=== PATIENT | male | born 1950 | race Caucasian/White ===

== ENCOUNTER 2018-05-01 05:15 | Day surgery (SDC) | payer MEDICARE, MEDICAID ==
[~2018-05-01] VITALS: Ht 182.9 cm; Wt 70.3 kg
[2018-05-01] VITALS (8 sets, daily range): BP systolic 105–133; BP diastolic 50–83
[~2018-05-01 05:15] MED LIST: ACIDOPHILUS1 EAC6 PO; ALLOPURINOL100 M1 ORAL; AMLODIPINE BESY10 MG ORAL; ASPIRIN81 MG ORAL; ATORVASTATIN CA10 MG ORAL; KEPPRA1000 MG ORAL; LEVEMIR100 UNIT/1 SUBQ; NOVOLOG100 UNIT/5 SQ; PROTONIX40 MG ORAL; RENVELA0.8 GM ORAL; RENVELA800 MG ORAL; TAMSULOSIN HCL0.4 MG ORAL; TRAZODONE HCL50 MG ORAL; VITAMIN D32000 UNI2 PO
[2018-05-01 06:24] LABS: BASOPHILS % (AUTO) 1.1 % (0.0-2.0); EOSINOPHILS % (AUTO) 3.7 % (0.0-3.0); HEMATOCRIT 37.7 % (42.0-52.0); HEMOGLOBIN 12.5 G/DL (14.2-18.0); LYMPHOCYTES % (AUTO) 21.1 % (20.0-45.0); MEAN CORPUSCULAR VOLUME 94 FL (80-99); MONOCYTES % (AUTO) 9.1 % (1.0-10.0); PLATELET COUNT 191 K/UL (150-450); RED BLOOD COUNT 4.02 M/UL (4.70-6.10); RED CELL DISTRIBUTION WIDTH 14.6 % (11.6-14.8); WHITE BLOOD COUNT 6.8 K/UL (4.8-10.8)
[2018-05-01 06:34] LABS: ANION GAP 13 mmol/L (5-15); BLOOD UREA NITROGEN 65 mg/dL (7-18); CARBON DIOXIDE 22 MMOL/L (21-32); CHLORIDE 102 MMOL/L (98-107); CREATININE 6.3 MG/DL (0.55-1.30); INR 0.9 (0.9-1.1); POTASSIUM 4.5 MMOL/L (3.5-5.1); SODIUM 137 MMOL/L (136-145)
[2018-05-01] MEDS ORDERED: Midazolam 2mg/2ml Inj ONE ×2 (08:59→12:22)
[2018-05-01] MEDS ORDERED: fentaNYL 100 mcg/2 mL IV ONE (09:03)
[2018-05-01] MEDS ORDERED: Lidocaine 1% MPF 10mg/ml 5ml ONE (09:06)
[2018-05-01] MEDS ORDERED: Lidocaine 1% Plain 30 ml INJ ONE (09:53)
[2018-05-01] MEDS ORDERED: Heparin 5000 units/ml inj ONE (09:53)
[2018-05-01] MEDS ORDERED: Bupivacaine 0.5% Inj 30 ml vial INJ ONE (09:53)
[2018-05-01] MEDS ORDERED: Clindamycin 600mg 50 ML IV ONE (09:56)
[2018-05-01] MEDS ORDERED: Propofol 200mg/20ml IV ONE (09:56)
[2018-05-01] MEDS ORDERED: Sterile Water Irrig 1000ml IRRIG ONE (10:00)
[2018-05-01] MEDS ORDERED: NS Irrig 1000ml ONE (10:00)
[2018-05-01] MEDS ORDERED: ePHEDrine 50mg/ml Inj ONE (10:30)
[2018-05-01] MEDS ORDERED: Sodium Chloride 10ml vial INJ ONE (10:30)
[2018-05-01] MEDS ORDERED: Phenylephrine 10mg/ml Vial ONE (10:34)
--- NOTE | 2018-05-01 10:59 | Anethesia Preoperative Eval ---
Anesthesia Pre-op PMH/ROS General Date of Evaluation: May 01, 2018 Time of Evaluation: 09:55 Anesthesiologist: Obdulio ASA Score: ASA 3 Mallampati Score Class I : Soft palate, uvula, fauces, pillars visible Class II: Soft palate, uvula, fauces visible Class III: Soft palate, base of uvula visible Class IV: Only hard plate visible Mallampati Classification: Class II Surgeon: Jermaine Diagnosis: ESRD Surgical Procedure: A-V shunt placement Anesthesia History: none Family History: no anesthesia problems Allergies: Coded Allergies: PENICILLINS (Verified Allergy, Unknown, 04/26/18) Medications: see eMAR Patient NPO?: Yes Past Medical History Cardiovascular: Reports: HTN; Denies: CAD, DC, valve dz, arrhythmia, other Pulmonary: Denies: asthma, COPD, ROSIE, other Gastrointestinal/Genitourinary: Reports: GERD, ESRD - on HD Neurologic/Psychiatric: Reports: depression/anxiety, other - Seizers psychotic? ; Denies: dementia, CVA, TIA Endocrine: Reports: DM - poorly controlled; Denies: hypothyroidism, steroids, other HEENT: Denies: cataract (L), cataract (R), glaucoma, CHENEGA (L), CHENEGA (R), other Hematology/Immune: Reports: anemia - mild; Denies: DVT, bleeding disorder, other Musculoskeletal/Integumentary: Reports: DJD; Denies: OA, RA, DDD, edema, other Other: other - malnourished PMH Narrative: as above. A-V shunt dialysis catheter Anesthesia Pre-op Phys. Exam Physician Exam Last Vital Signs Date Time Temp Pulse Resp B/P (MAP) Pulse Ox O2 Delivery O2 Flow Rate FiO2 05/01/18 07:49 98.3 84 20 132/76 96 Room Air Constitutional: NAD Neurologic: other - unable to obtaine Cardiovascular: RRR Respiratory: CTA Gastrointestinal: S/NT/ND Airway Exam Mallampati Score: Class III MO: limited Neck: stiff ROM: limited Teeth: missing Dentures: no upper, no lower Anesthesia Pre-op A/P Labs Hematology Test 05/01/18 06:10 White Blood Count 6.8 K/UL (4.8-10.8) Red Blood Count 4.02 M/UL (4.70-6.10) L Hemoglobin 12.5 G/DL (14.2-18.0) L Hematocrit 37.7 % (42.0-52.0) L Mean Corpuscular Volume 94 FL (80-99) Mean Corpuscular Hemoglobin 31.2 PG (27.0-31.0) H Mean Corpuscular Hemoglobin Concent 33.3 G/DL (32.0-36.0) Red Cell Distribution Width 14.6 % (11.6-14.8) Platelet Count 191 K/UL (150-450) Mean Platelet Volume 6.0 FL (6.5-10.1) L Neutrophils (%) (Auto) 65.0 % (45.0-75.0) Lymphocytes (%) (Auto) 21.1 % (20.0-45.0) Monocytes (%) (Auto) 9.1 % (1.0-10.0) Eosinophils (%) (Auto) 3.7 % (0.0-3.0) H Basophils (%) (Auto) 1.1 % (0.0-2.0) Coagulation Test 05/01/18 06:10 Prothrombin Time 10.0 SEC (9.30-11.50) Prothromb Time International Ratio 0.9 (0.9-1.1) Activated Partial Thromboplast Time 27 SEC (23-33) Chemistry Test 05/01/18 06:10 Sodium Level 137 MMOL/L (136-145) Potassium Level 4.5 MMOL/L (3.5-5.1) Chloride Level 102 MMOL/L (98-107) Carbon Dioxide Level 22 MMOL/L (21-32) Anion Gap 13 mmol/L (5-15) Blood Urea Nitrogen 65 mg/dL (7-18) H Creatinine 6.3 MG/DL (0.55-1.30) H Estimat Glomerular Filtration Rate 8.9 mL/min (>60) Glucose Level 164 MG/DL (74-106) H Calcium Level 9.0 MG/DL (8.5-10.1) Studies Pre-op Studies: EKG - SR Risk Assessment & Plan Assessment: ASA 3 Plan: GA with LMA. Patient uncooperative even combative, so I/V sedation with local is not an option for anesthesia Status Change Before Surgery: No Pre-Antibiotics Drug: Clindamycin 600 mg Given Within 1 Hr of Incision: Yes Time Given: 10:40 Vakulenko,Cullen MD May 01, 2018 10:59
[2018-05-01] MEDS ORDERED: DiphenhydrAMINE 50mg/ml Inj IVP PRN (11:00)
[2018-05-01] MEDS ORDERED: fentaNYL 100 mcg/2 mL IV PRN (11:00)
[2018-05-01] MEDS ORDERED: Midazolam 2mg/2ml Inj IVP PRN (11:00)
--- NOTE | 2018-05-01 12:49 | Pre-Procedure Note/Attestation ---
Pre-Procedure Note/Attestation Complete Prior to Procedure Planned Procedure: left Procedure Narrative: arm dialysis shunt, possible dialysis catheter placement Indications for Procedure Pre-Operative Diagnosis: ESRD; thrombosed AV shunt Attestation I attest that I discussed the nature of the procedure; its benefits; risks and complications; and alternatives (and the risks and benefits of such alternatives ), prior to the procedure, with the patient (or the patient's legal new accounts banking representative). I attest that, if there was a reasonable possibility of needing a blood transfusion, the patient (or the patient's legal new accounts banking representative) was given the [facility] standardized written summary, pursuant to the Prateek [place] Blood Safety Act ([place] Health and Safety Code # 1645, as amended). I attest that I re-evaluated the patient just prior to the surgery and that there has been no change in the patient's H&P, except as documented below: Malik Dean MD May 01, 2018 12:49
--- NOTE | 2018-05-01 12:50 | Brief Operative Note ---
Immediate Post Operative Note Operative Note Pre-op Diagnosis: ESRD; thrombosed AV shunt Procedure: left brachiobasilic AVF creation; attempted Zbigniew AVF; exploration of old AV shunt Post-op Diagnosis: same as pre-op Findings: consistent w/pre-op dx studies Surgeon: Rikki Dean Anesthesia: general Specimen: none Complications: none Condition: stable Fluids: see anesth. record Estimated Blood Loss: minimal Drains: none Implant(s) used?: No Malik Dean MD May 01, 2018 12:50
--- NOTE | 2018-05-01 12:58 | Immediate Post-Op Evaluation ---
Immediate Post-Op Evalulation Immediate Post-Op Evalulation Procedure: L arm A-V fistula creation Date of Evaluation: May 01, 2018 Time of Evaluation: 12:57 IV Fluids: 600 Blood Products: none Estimated Blood Loss: 50 Urinary Output: none Blood Pressure Systolic: 122 Blood Pressure Diastolic: 56 Pulse Rate: 78 Respiratory Rate: 20 O2 Sat by Pulse Oximetry: 99 Temperature (Fahrenheit): 97.6 Pain Score (1-10): 2 Nausea: No Vomiting: No Complications none Patient Status: awake, patent, none Hydration Status: adequate Cullen Mak MD May 01, 2018 12:58
--- NOTE | 2018-05-02 17:10 | Cardiology Report ---
APPROVED REPORT EKG Measurement Heart [id number] Normal sinus rhythm Normal ECG
--- NOTE | 2018-05-07 21:53 | Diagnostic Imaging Report ---
APPROVED REPORT CPT Code: G0365 Present Symptoms Comments: Pre-op Vein mapping Vein Measurements(cm) Cephalic Basilic Right LeftRight Left 0.27Upper Arm0.43Mid Upper Arm0.40 0.24Mid Upper Arm0.33Antecubital Fossa0.27 0.22Upper Forearm 0.25Antecubital FossaWrist 0.18Upper Forearm 0.18Wrist VEIN MAPPING: The right and left basilic and right cephalic veins were imaged and measured to evaluate as a potential graft for dialysis access. BILATERAL UPPER EXTREMITY: Venous imaging reveals patency of the internal jugular, subclavian, axillary and brachial veins. The cephalic and basilic veins are also patent. Doppler indicates normal spontaneous flow within these venous segments. Note: There is nonfunctioning left Dialysis graft at the left upper arm visualized.
--- NOTE | 2018-05-14 11:15 | Operative Note - Dictated ---
DATE OF OPERATION: 05/01/2018 PREOPERATIVE DIAGNOSES: 1. Thrombosed dialysis shunt. 2. Endstage renal disease. POSTOPERATIVE DIAGNOSES: 1. Thrombosed dialysis shunt. 2. Endstage renal disease as well as findings below. PROCEDURES: 1. Creation of brachiobasilic dialysis arteriovenous fistula in the left upper extremity. 2. Attempted creation of Zbigniew AV fistula in the left forearm. 3. Exploration of the old dialysis shunt. 4. Dilation of left basilic vein. SURGEON: Malik Dean M.D. ANESTHESIOLOGIST: Cullen Mak M.D. INDICATION: The patient dialyzes through a tunneled catheter and is in need of permanent access. Previous shunt has been thrombosed for a significant amount of time and attempt at creation of a permanent access was recommended. INTRAOPERATIVE FINDINGS: The existing shunt was chronically thrombosed and not salvageable and therefore the basilic vein was used to create a new AV fistula as described and the fistula had a good thrill at the end of the procedure. Ipsilateral radial pulse is present at left wrist level. An attempt was first made to create a Zbigniew fistula at the left wrist level but the vein was inadequate and it was abandoned. The new fistula had a good thrill and will be allowed to mature before reassessment for possible transposition after few weeks. PROCEDURE IN DETAIL: With the patient in supine position and after induction of anesthesia, the left upper extremity was prepped and draped in usual sterile fashion and the skin was infiltrated with local anesthetic. A longitudinal incision was made over the course of the radial artery at the left wrist level through which the artery was exposed and noted to be patent but calcified. Cephalic vein were interrogated for creation of the AV fistula and therefore this approach was abandoned and the wound irrigated with antibiotic solution and hemostasis was established. It was closed with interrupted sutures of 3-0 Vicryl for the deep layer followed by 4-0 Monocryl subcuticular continuous fashion for skin closure. Sterile dressings were placed. Next incision was made over the brachial pulse just distal to the antecubital crease and close to the previous arterial anastomosis of the shunt through which the anastomosis was exposed and the artery encircled with vessel loops proximally and distally. The shunt appeared to have a chronic thrombus not amenable to thrombectomy and therefore the basilic vein at this level was examined and noted to be patent. It was ligated and divided more distally and an adequate length was mobilized by ligating tributaries between silk ties and hemoclips were necessary. It was flushed with heparinized saline and noted to be widely patent. Serial dilators were passed up to a 3 millimeter diameter without significant resistance and after the end of the vein was spatulated. The brachial artery more proximal to the existing shunt anastomosis was then controlled with vessel loops proximally and distally and a longitudinal arteriotomy was made. Through which the vessel was flushed with heparinized saline proximally and distally. An end-to-side anastomosis of the vein and then carried out with a continuous suture of 6-0 Prolene. After removal the vessel, excellent thrill to the the vein was noted and a palpable thrill and ipsilateral radial pulse apparent as described above. After hemostasis was ensured, the wound was irrigated antibiotic solution and closed with interrupted sutures of 2-0 and 3-0 Vicryl for deep layer followed by 4-0 Monocryl subcuticular continuous fashion for skin closure. Antibiotic ointment and dressings were applied. The patient brought out of anesthesia, extubated and transferred to the PACU in stable condition. He tolerated the procedure well. At the conclusion of procedure, sponge, needle and instrument counts were correct. ESTIMATED BLOOD LOSS: Minimal. COMPLICATIONS: None. DRAINS: None. SPECIMEN: None. Malik Dean M.D. DR: Yaa JOB#: [id number] CC: Yanira Thompson M.D. ; FAX#: [phone]
== END 2018-05-01 16:15 | disposition home or self-care (01) ==
LOC: SUR 05:15
DX: T82.868A Thrombosis due to vascular prosthetic devices, implants and grafts, initial encounter (principal); Y83.8 Other surgical procedures as the cause of abnormal reaction of the patient, or of later complication, without mention of misadventure at the time of the procedure; Y92.89 Other specified places as the place of occurrence of the external cause; E11.22 Type 2 diabetes mellitus with diabetic chronic kidney disease; I12.0 Hypertensive chronic kidney disease with stage 5 chronic kidney disease or end stage renal disease; N18.6 End stage renal disease; Z99.2 Dependence on renal dialysis; Z79.4 Long term (current) use of insulin; N40.0 Benign prostatic hyperplasia without lower urinary tract symptoms; M10.9 Gout, unspecified; R56.9 Unspecified convulsions; E78.5 Hyperlipidemia, unspecified; E87.5 Hyperkalemia; F32.9 Major depressive disorder, single episode, unspecified; F41.9 Anxiety disorder, unspecified; D64.9 Anemia, unspecified; M19.90 Unspecified osteoarthritis, unspecified site
CPT/HCPCS: 36415; 36819; 80048; 82962; 85025; 85610; 85730; 93005; 93922; J1644; J2001; J2250; J2370; J2704; J3010; J3490; 94003; 94150; S0077

== ENCOUNTER 2018-08-02 08:53 | Inpatient (IN) | payer MEDICAID, MEDICARE ==
[~2018-08-02] VITALS: Ht 182.9 cm
--- NOTE | 2018-08-02 09:00 | NUR ---
ED Nurse Note: [facility]. patient has HD cath on the right upper chest covered with dry dressing. patient has LT antecubital shunt covered with dressing. patient is awake and alert x1, with some confusion. patient is able to make his needs known and follow direction. breathing even and unlabored.
[2018-08-02 09:02] VITALS: BP 130/69
--- NOTE | 2018-08-02 09:29 | Emergency Room Report ---
History of Present Illness General Chief Complaint: General Complaint Source: Patient, Medical Record Present Illness HPI 68yo M sent for vascular surgery, patient is limited in his cooperation but reports he was supposed to have vascular surgery. He denies any complaints and reports feeling well. Allergies: Coded Allergies: PENICILLINS (Verified Allergy, Unknown, 04/26/18) Patient History Past Medical History: see triage record Reviewed Nursing Documentation: PMH: Agreed; PSxH: Agreed Nursing Documentation-PMH Past Medical History: No History, Except For Hx Cardiac Problems: Yes Hx Hypertension: Yes Hx Diabetes: Yes Hx Cancer: No Hx Gastrointestinal Problems: Yes Hx Dialysis: Yes - MON/MON/MON-SHUNT LEFT ANTICUBITAL Hx Neurological Problems: Yes Hx Seizures: Yes Review of Systems All Other Systems: negative except mentioned in HPI Physical Exam Vital Signs Date Time Temp Pulse Resp B/P (MAP) Pulse Ox O2 Delivery O2 Flow Rate FiO2 08/02/18 08:56 98.6 90 21 97 Room Air 08/02/18 09:02 130/69 Sp02 EP Interpretation: reviewed, normal General Appearance: no apparent distress, alert, non-toxic Head: normocephalic Eyes: bilateral eye normal inspection, bilateral eye PERRL, bilateral eye EOMI ENT: normal ENT inspection, hearing grossly normal, normal pharynx, no angioedema, normal voice, moist mucus membranes Neck: normal inspection, full range of motion, supple, supple/symm/no masses Respiratory: chest non-tender, lungs clear, normal breath sounds, other - R chest vascath site c/d/i, no erythema/edema/warmth, chest symmetrical, palpation of chest normal Cardiovascular #1: normal peripheral pulses, regular rate, rhythm Cardiovascular #2: 2+ radial (R), 2+ radial (L) Gastrointestinal: normal inspection, non tender, soft, no mass, no guarding, no rebound Rectal: deferred Genitourinary: normal inspection, no CVA tenderness Musculoskeletal: back normal, gait/station normal, normal range of motion, non- tender, no calf tenderness Neurologic: alert, responsive, student life vice president III-XII nml as tested, motor strength/tone normal, sensory intact, speech normal Psychiatric: judgement/insight normal, memory normal, mood/affect normal Skin: normal color, no rash, warm/dry, normal turgor Lymphatic: no adenopathy Medical Decision Making Diagnostic Impression: Primary Impression: Encounter for generalized patient complaints ER Course Patient apparently supposed to be here for placement of HD access (shunt vs. AVF ) with Dr. Dean, will admit to med surgery. EKG Diagnostic Results EKG Time: 09:09 EP Interpretation: no stemi Rate: normal Rhythm: NSR ST Segments: no acute changes ASA given to the pt in ED: No Rhythm Strip Diag. Results Rhythm Strip Time: 09:28 EP Interpretation: yes Rate: 82 Rhythm: NSR, no PVC's, no ectopy Last Vital Signs Date Time Temp Pulse Resp B/P (MAP) Pulse Ox O2 Delivery O2 Flow Rate FiO2 08/02/18 09:04 81 21 Room Air 08/02/18 09:02 98.6 130/69 98 Disposition: ADMITTED INPATIENT Condition: Stable BRENDA PHILLIPS M.D August 02, 2018 09:29
--- NOTE | 2018-08-02 09:40 | NUR ---
ED Nurse Note: xray taken at bed
[2018-08-02 09:54] LABS: BASOPHILS % (AUTO) 1.5 % (0.0-2.0); HEMATOCRIT 36.8 % (42.0-52.0); HEMOGLOBIN 12.4 G/DL (14.2-18.0); LYMPHOCYTES % (AUTO) 26.9 % (20.0-45.0); MEAN CORPUSCULAR VOLUME 92 FL (80-99); MONOCYTES % (AUTO) 11.6 % (1.0-10.0); PLATELET COUNT 240 K/UL (150-450); RED BLOOD COUNT 3.98 M/UL (4.70-6.10); RED CELL DISTRIBUTION WIDTH 13.6 % (11.6-14.8); WHITE BLOOD COUNT 7.5 K/UL (4.8-10.8)
[2018-08-02 10:11] VITALS: BP 124/64
[2018-08-02 10:17] LABS: ANION GAP 10 mmol/L (5-15); BLOOD UREA NITROGEN 37 mg/dL (7-18); CALCIUM 9.2 MG/DL (8.5-10.1); CARBON DIOXIDE 29 MMOL/L (21-32); CHLORIDE 97 MMOL/L (98-107); POTASSIUM 5.2 MMOL/L (3.5-5.1); SODIUM 136 MMOL/L (136-145)
[2018-08-02 10:21] LABS: ALANINE AMINOTRANSFERASE 29 U/L (12-78); ALBUMIN 3.9 G/DL (3.4-5.0); ALKALINE PHOSPHATASE 95 U/L (46-116); ASPARTATE AMINO TRANSFERASE 34 U/L (15-37); BILIRUBIN,TOTAL 0.6 MG/DL (0.2-1.0)
[2018-08-02 10:31] LABS: INR 0.9 (0.9-1.1)
--- NOTE | 2018-08-02 10:32 | Diagnostic Imaging Report ---
Indication: Dyspnea Comparison: 04/06/2006 A single view chest radiograph was obtained. Findings: There is a right jugular permacath in good position. Heart size is normal. Lungs are clear. IMPRESSION: Permacath. No acute findings
[2018-08-02 12:01] VITALS: BP 129/67
--- NOTE | 2018-08-02 12:38 | NUR ---
ED Nurse Note: patient's lunch tray as ordered by Dr. Munguia delivered, RETAIL LOAN OFFICER is assisting patient to eat.
--- NOTE | 2018-08-02 13:05 | NUR ---
ED Nurse Note: OPAL (CAREGIVER) TO BE NOTIFIED OF PT'S PLAN OF CARE PLS. [phone].
--- NOTE | 2018-08-02 13:06 | NUR ---
ED Nurse Note: Called 4E to give report, Victor Manuel CHASE said Afsoon the receiving nurse is passing meds, told to call back in 10 minutes
--- NOTE | 2018-08-02 13:25 | NUR ---
ED Nurse Note: Dr. Núñez ok for the patient to be transferred to with K 5.2
--- NOTE | 2018-08-02 13:28 | NUR ---
ED Nurse Note: report given to RONALDO RN, endorsed all care to Ronaldo RN. patient went up with ODELL BRADY with all of his belongings
--- NOTE | 2018-08-02 13:35 | NUR ---
ED Nurse Note: Spoke with [facility] Charge nurse and let her know that patient is now transferred up to 4E and report was given to Ronaldo NAYAK
--- NOTE | 2018-08-02 13:40 | NUR ---
NURSE NOTES: Received pt from NAEL STORY. pt is confused and orient x2. pt is in RA, No SOB or acute respiratory distress noted. pt has R jaguar PermCath and LAV SHUNT. pt has RFA 20G SL. Dr BARRY is aware and visited pt and input all admission orders. Dr BARRY is aware about K 5.2 and sacral red ness and L knee dry scabs. all needs attended, bed is locked and is in the lowest position. call light within easy reach. will continue to monitor.
[2018-08-02 13:45] VITALS: BP 128/86
--- NOTE | 2018-08-02 14:11 | Anethesia Preoperative Eval ---
Anesthesia Pre-op PMH/ROS General Date of Evaluation: August 02, 2018 Time of Evaluation: 13:12 Anesthesiologist: Anders ASA Score: ASA 3 Mallampati Score Class I : Soft palate, uvula, fauces, pillars visible Class II: Soft palate, uvula, fauces visible Class III: Soft palate, base of uvula visible Class IV: Only hard plate visible Mallampati Classification: Class II Surgeon: Jermaine Diagnosis: ESRD Surgical Procedure: L Arm AV Shunt Revision, Dialysis Catheter Placement Anesthesia History: none Family History: no anesthesia problems Allergies: Coded Allergies: PENICILLINS (Verified Allergy, Unknown, 04/26/18) Medications: see eMAR Patient NPO?: Yes Past Medical History Cardiovascular: Reports: HTN, other - HL Gastrointestinal/Genitourinary: Reports: GERD, ESRD - Dialysis Neurologic/Psychiatric: Reports: depression/anxiety Endocrine: Reports: DM Hematology/Immune: Reports: anemia Musculoskeletal/Integumentary: Reports: other - GOUT PSxH Narrative: AV Shunt Anesthesia Pre-op Phys. Exam Physician Exam Last Vital Signs Date Time Temp Pulse Resp B/P (MAP) Pulse Ox O2 Delivery O2 Flow Rate FiO2 08/02/18 13:28 98.6 75 12 129/67 95 Room Air Constitutional: NAD Neurologic: CN 2-12 intact Cardiovascular: RRR Respiratory: CTA Gastrointestinal: S/NT/ND Airway Exam Mallampati Score: Class II MO: full ROM: limited Teeth: missing, intact Anesthesia Pre-op A/P Labs Hematology Test 08/02/18 09:25 White Blood Count 7.5 K/UL (4.8-10.8) Red Blood Count 3.98 M/UL (4.70-6.10) L Hemoglobin 12.4 G/DL (14.2-18.0) L Hematocrit 36.8 % (42.0-52.0) L Mean Corpuscular Volume 92 FL (80-99) Mean Corpuscular Hemoglobin 31.2 PG (27.0-31.0) H Mean Corpuscular Hemoglobin Concent 33.8 G/DL (32.0-36.0) Red Cell Distribution Width 13.6 % (11.6-14.8) Platelet Count 240 K/UL (150-450) Mean Platelet Volume 7.3 FL (6.5-10.1) Neutrophils (%) (Auto) 57.0 % (45.0-75.0) Lymphocytes (%) (Auto) 26.9 % (20.0-45.0) Monocytes (%) (Auto) 11.6 % (1.0-10.0) H Eosinophils (%) (Auto) 3.0 % (0.0-3.0) Basophils (%) (Auto) 1.5 % (0.0-2.0) Coagulation Test 08/02/18 09:25 Prothrombin Time 10.0 SEC (9.30-11.50) Prothromb Time International Ratio 0.9 (0.9-1.1) Activated Partial Thromboplast Time 24 SEC (23-33) Chemistry Test 08/02/18 09:25 Sodium Level 136 MMOL/L (136-145) Potassium Level 5.2 MMOL/L (3.5-5.1) H Chloride Level 97 MMOL/L (98-107) L Carbon Dioxide Level 29 MMOL/L (21-32) Anion Gap 10 mmol/L (5-15) Blood Urea Nitrogen 37 mg/dL (7-18) H Creatinine 6.0 MG/DL (0.55-1.30) H Estimat Glomerular Filtration Rate 9.4 mL/min (>60) Glucose Level 179 MG/DL (74-106) H Calcium Level 9.2 MG/DL (8.5-10.1) Total Bilirubin 0.6 MG/DL (0.2-1.0) Aspartate Amino Transf (AST/SGOT) 34 U/L (15-37) Alanine Aminotransferase (ALT/SGPT) 29 U/L (12-78) Alkaline Phosphatase 95 U/L (46-116) Total Protein 7.7 G/DL (6.4-8.2) Albumin 3.9 G/DL (3.4-5.0) Globulin 3.8 g/dL Albumin/Globulin Ratio 1.0 (1.0-2.7) Risk Assessment & Plan Assessment: ASA 3 Plan: GA Status Change Before Surgery: No Pre-Antibiotics Drug: Des Sage MD August 02, 2018 14:11
--- NOTE | 2018-08-02 14:28 | NUR ---
CHARGE NURSE NOTES: Called [facility] and spoke to Fortunato. Informed HD order for 08/03/18. Verbalized understanding and said cancellation clerk dialysis nurse will call to confirm
[2018-08-02 16:00] VITALS: BP 145/55
--- NOTE | 2018-08-02 16:00 | NUR ---
NURSE NOTES: called the number in the chart for zhanna kemp x3 for consent about HD and AVF, no body answered. called [facility] spoke with FAMOCO, she stated pt doesn't have any family member. Dr BARRY is notified, and Dr AMARAL signed consent form and tomorrow will be signed by surgeon Dr NORIEGA per Dr salas. Dr NORIEGA is notified. will continue to monitor.
[2018-08-02] MEDS: NovoLOG Insulin Flexpen SUBQ SCH ×2 (17:06→20:39)
--- NOTE | 2018-08-02 19:30 | NUR ---
NURSE NOTES: RECEIVED PATIENT LYING IN BED, AWAKE, ALERT/ORIENTED X2, CONFUSED, JONES, REALITY ORIENTATION PROVIDED DURING ASSESSMENT. DENIES PAIN. NO SIGNS AND SYMPTOMS OF ACUTE CARDIO RESPIRATORY DISTRESS/SHORTNESS OF BREATH, NO EDEMA NOTED, DENIES CHEST PAIN. NO COMPLAINTS OF GI DISCOMFORT, CONDOM CATHETER INTACT/PATENT, DRAINING YELLOW URINE. SKIN ASSESSMENT; NOTED WITH PERIANAL REDNESS, LEFT KNEE NOTED WITH MULTIPLE SCABS, REDNESS TO RIGHT ANKLE. SIDE RAILS UP X3/BED IN LOWEST POSITION FOR SAFETY. CALL LIGHT WITHIN REACH. FREQUENT ROUNDS FOR SAFETY/NEEDS. NAD. NPO POST MIDNIGHT, SIGN POSTED.
--- NOTE | 2018-08-02 19:36 | NUR ---
HAND-OFF: Report given to NAEL GO. Endorsed to keep pt NPO from mid night and F/U with surgeon and primary Dr to sign consent form
[2018-08-02 20:00] VITALS: BP 135/86
[2018-08-02] MEDS: Tamsulosin 0.4mg cap ORAL SCH (20:27)
[2018-08-02] MEDS: Docusate 100mg cap ORAL SCH (20:27)
[2018-08-02] MEDS: Levemir Flexpen SUBQ SCH (20:38)
[2018-08-02] MEDS ORDERED: TraZODone 50mg tab ORAL SCH (21:00)
[2018-08-03] VITALS (12 sets, daily range): BP systolic 127–161; BP diastolic 53–96
--- NOTE | 2018-08-03 00:30 | Consultation ---
DATE OF CONSULTATION: 08/02/2018 CONSULTING PHYSICIAN: Karolyn Rendon M.D. HISTORY OF PRESENT ILLNESS: The patient is a 68-year-old male with unknown psychiatric history who has been admitted to the hospital for vascular surgery. The patient has been uncooperative and has been yelling, getting agitated easily. During the evaluation, the patient is somewhat confused, was unable to answer the questions appropriately. The patient has been paranoid and delusional, yelling, and responding to self. The patient using profanity towards the staff and has made sexual remarks, for example "suck my ." The patient was unable to understand, process, communicate nor appreciate the information that was given to him in regard to his medical condition or the procedure. The patient lacks capacity to make decisions or sign any consent form. PAST PSYCHIATRIC HISTORY: Unknown. 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 ALLERGIES: Penicillin. SUBSTANCE ABUSE HISTORY: No known history of illicit drug use or alcohol. MENTAL STATUS EXAMINATION: The patient is alert, oriented times self. He was uncooperative. Mood was irritable. Affect is constricted, congruent with mood. Thought process is concrete. Thought content, no suicidal or homicidal ideations. ASSESSMENT: Descanso I Dementia with behavior disturbance, rule out encephalopathy. [place]o II Deferred. [place]canso III As above. [place]o IV Low. [place]canso V 20. PLAN: 1. We will start the patient on risperidone 1 mg p.o. at bedtime and risperidone p.r.n. 2. The patient lacks capacity, needs 2 physicians to sign the consent form for the procedure. Dr. Munguia and I will sign the consent form. Karolyn Rendon M.D. DR: VICTOR HUGO JOB#: [id number] CC:
[2018-08-03] MEDS: NovoLOG Insulin Flexpen SUBQ SCH ×4 (06:30→21:50)
--- NOTE | 2018-08-03 06:43 | NUR ---
NURSE NOTES: BLOOD GLUCOSE LEVEL MONITORED VIA GLUCOMETER WITH RESULT 127MG/DL, ASYMPTOMATIC, KPATIENT NPO/AM INSULIN HELD-
--- NOTE | 2018-08-03 07:30 | NUR ---
NURSE NOTES: Received pt from NIKKI GO. Pt is alert and orient x4. pt is in RA, No SOB or acute respiratory distress noted. pt has RFA 20G SL. Pt has condom cath in place is running well. pt is NPO due to procedure today. all needs attended, bed is locked and is in the lowest position, call light within easy reach. will continue to monitor.
--- NOTE | 2018-08-03 07:30 | NUR ---
HAND-OFF: Report given to NAEL CUEVAS.
--- NOTE | 2018-08-03 08:39 | Nephrology Progress Note ---
Assessment/Plan Assessment/Plan: A/P 1) ESRD- HD MWF - HD orders placed 2) NonFx AVF- for revsion today 3) Gout- allopurinol 4) DM - per PCP Subjective Date patient seen: August 03, 2018 Time patient seen: 08:37 ROS Limited/Unobtainable: No Allergies: Coded Allergies: PENICILLINS (Verified Allergy, Unknown, 04/26/18) Subjective Patient slightly agitated. NPO awaiting AVF revision Objective Last 24 Hour Vital Signs Date Time Temp Pulse Resp B/P (MAP) Pulse Ox O2 Delivery O2 Flow Rate FiO2 08/03/18 04:00 97.1 87 18 143/80 (101) 87 08/03/18 00:00 98.0 80 20 141/96 (111) 99 08/02/18 21:00 Room Air 08/02/18 20:00 99.6 81 18 135/86 (102) 97 08/02/18 16:00 97.2 83 20 145/55 (85) 95 08/02/18 15:00 Room Air 08/02/18 13:45 98.1 82 20 128/86 (100) 100 08/02/18 13:28 98.6 75 12 129/67 95 Room Air 08/02/18 12:01 98.6 75 12 129/67 95 Room Air 08/02/18 10:11 98.6 79 16 124/64 94 Room Air 08/02/18 09:04 81 21 Room Air 08/02/18 09:02 98.6 81 21 130/69 98 Room Air 08/02/18 08:56 98.6 90 21 97 Room Air Intake and Output 08/02/18 08/03/18 18:59 06:59 Intake Total 150 ml 240 ml Output Total 300 ml 600 ml Balance -150 ml -360 ml Intake Oral 150 ml 240 ml Output Urine Total 300 ml 600 ml Laboratory Tests 08/02/18 09:25: White Blood Count 7.5, Red Blood Count 3.98L, Hemoglobin 12.4L, Hematocrit 36.8L , Mean Corpuscular Volume 92, Mean Corpuscular Hemoglobin 31.2H, Mean Corpuscular Hemoglobin Concent 33.8, Red Cell Distribution Width 13.6, Platelet Count 240, Mean Platelet Volume 7.3, Neutrophils (%) (Auto) 57.0, Lymphocytes (% ) (Auto) 26.9, Monocytes (%) (Auto) 11.6H, Eosinophils (%) (Auto) 3.0, Basophils (%) (Auto) 1.5, Prothrombin Time 10.0, Prothromb Time International Ratio 0.9, Activated Partial Thromboplast Time 24, Sodium Level 136, Potassium Level 5.2H, Chloride Level 97L, Carbon Dioxide Level 29, Anion Gap 10, Blood Urea Nitrogen 37H, Creatinine 6.0H, Estimat Glomerular Filtration Rate 9.4, Glucose Level 179H, Calcium Level 9.2, Total Bilirubin 0.6, Aspartate Amino Transf (AST/SGOT) 34, Alanine Aminotransferase (ALT/SGPT) 29, Alkaline Phosphatase 95, Total Protein 7.7, Albumin 3.9, Globulin 3.8, Albumin/Globulin Ratio 1.0 08/02/18 17:15: Potassium Level 4.2 Height (Feet): 6 Height (Inches): 0.00 Weight (Pounds): 179 General Appearance: no apparent distress, alert EENT: normal ENT inspection Neck: normal alignment, supple, normal inspection Cardiovascular: normal rate, regular rhythm Respiratory/Chest: lungs clear, normal breath sounds Abdomen: non tender, soft Edema: no edema noted Arm (L), no edema noted Arm (R), no edema noted Leg (L), no edema noted Leg (R), no edema noted Pedal (L), no edema noted Pedal (R), no edema noted Generalized Thang Munguia MD August 03, 2018 08:39
--- NOTE | 2018-08-03 08:47 | History & Physical ---
History and Physical History & Physicial HISTORY OF PRESENT ILLNESS: The patient is a 68-year-old gentleman, who was sent to the hospital for further evaluation and care of poorly functioning dialysis catheter when noted to have a potassium of 5.2. It was told that he in the future also need improved access over his dialysis catheter such as an AV fistula. Denies any nausea, vomiting, or diarrhea. He undergoes hemodialysis Monday, Monday and Monday at a local [facility]. The patient says that he had his dialysis session yesterday. PAST MEDICAL HISTORY: 1. End-stage renal disease, on dialysis. 2. Hypertension. 3. Diabetes mellitus. 4. Hyperlipidemia. 5. Anemia of chronic kidney disease. 6. Secondary hyperparathyroidism. PAST SURGICAL HISTORY: 1. AV fistula. 2. Dialysis catheter. ALLERGIES: Penicillins. FAMILY HISTORY: Positive for hypertension and diabetes. REVIEW OF SYSTEMS: NEUROLOGIC: The patient denies headache, change in vision, syncope, or presyncopal episodes. CARDIOVASCULAR: No current chest pain, palpitations, or angina. PULMONARY: No difficulty breathing, productive cough, or sputum. GASTROINTESTINAL/GENITOURINARY: No change in urine or bowel habits. No nausea, vomiting, or diarrhea. ENDOCRINOLOGY: No night sweats, fevers, or chills. MS: right upper chest wall permcath in place PHYSICAL EXAMINATION: GENERAL: The patient is awake, alert, and not in distress. HEENT: Extraocular muscles intact. No lymphadenopathy noted.Oropharyngeal mucosa is clear and dry. CARDIOVASCULAR: S1, S2. No rubs or gallops.PULMONARY: Clear to auscultation bilaterally. No rales, rhonchi, or wheezes.ABDOMINAL: Nondistended and nontender.EXTREMITY: No edema noted. LABORATORY DATA: Laboratories dated 08/02/2018 reviewed Medication : Reviewed and reconciled in the chart ASSESSMENT AND PLAN: 1. End-stage renal disease, on hemodialysis. 2. Mild hyperkalemia. 3. Nonfunctioning AV fistula. At this time, surgery has been consulted for revision in the morning. 4. Hypertension. We will adjust medications as deemed appropriate. 5. Diabetes mellitus. At this time, the patient will be placed on insulin sliding scale along with low carbohydrate diet and continue his home Levemir. 6. DVT prophylaxis with SCDs. Plan: Care d/w Nephrology , Dr Acosta and Dr Banuelos, will proceed with HD mgt Proceed with Revision of AVF, per Allegra Li MD August 03, 2018 08:47
--- NOTE | 2018-08-03 08:48 | General Progress Note ---
Assessment/Plan Assessment/Plan: S: I am ok O: poor historian, lack of capacity . appears comfortable PHYSICAL EXAMINATION: GENERAL: The patient is awake, alert, and not in distress. HEENT: Extraocular muscles intact. No lymphadenopathy noted.Oropharyngeal mucosa is clear and dry. CARDIOVASCULAR: S1, S2. No rubs or gallops.PULMONARY: Clear to auscultation bilaterally. No rales, rhonchi, or wheezes.ABDOMINAL: Nondistended and nontender.EXTREMITY: No edema noted. LABORATORY DATA: Laboratories dated 08/02/2018 reviewed Medication : Reviewed and reconciled in the chart ASSESSMENT AND PLAN: 1. End-stage renal disease, on hemodialysis. 2. Mild hyperkalemia. 3. Nonfunctioning AV fistula. At this time, surgery has been consulted for revision in the morning. 4. Hypertension. We will adjust medications as deemed appropriate. 5. Diabetes mellitus. At this time, the patient will be placed on insulin sliding scale along with low carbohydrate diet and continue his home Levemir. 6. DVT prophylaxis with SCDs. Plan: Care d/w Nephrology , Dr Acosta and Dr Banuelos, will proceed with HD mgt Proceed with Revision of AVF, per Dr Dean Medically stable for procedure today Subjective Allergies: Coded Allergies: PENICILLINS (Verified Allergy, Unknown, 04/26/18) Objective Last 24 Hour Vital Signs Date Time Temp Pulse Resp B/P (MAP) Pulse Ox O2 Delivery O2 Flow Rate FiO2 08/03/18 04:00 97.1 87 18 143/80 (101) 87 08/03/18 00:00 98.0 80 20 141/96 (111) 99 08/02/18 21:00 Room Air 08/02/18 20:00 99.6 81 18 135/86 (102) 97 08/02/18 16:00 97.2 83 20 145/55 (85) 95 08/02/18 15:00 Room Air 08/02/18 13:45 98.1 82 20 128/86 (100) 100 08/02/18 13:28 98.6 75 12 129/67 95 Room Air 08/02/18 12:01 98.6 75 12 129/67 95 Room Air 08/02/18 10:11 98.6 79 16 124/64 94 Room Air 08/02/18 09:04 81 21 Room Air 08/02/18 09:02 98.6 81 21 130/69 98 Room Air 08/02/18 08:56 98.6 90 21 97 Room Air Intake and Output 08/02/18 08/03/18 19:00 07:00 Intake Total 150 ml 240 ml Output Total 300 ml 600 ml Balance -150 ml -360 ml Intake Oral 150 ml 240 ml Output Urine Total 300 ml 600 ml Laboratory Tests 08/02/18 09:25: White Blood Count 7.5, Red Blood Count 3.98L, Hemoglobin 12.4L, Hematocrit 36.8L , Mean Corpuscular Volume 92, Mean Corpuscular Hemoglobin 31.2H, Mean Corpuscular Hemoglobin Concent 33.8, Red Cell Distribution Width 13.6, Platelet Count 240, Mean Platelet Volume 7.3, Neutrophils (%) (Auto) 57.0, Lymphocytes (% ) (Auto) 26.9, Monocytes (%) (Auto) 11.6H, Eosinophils (%) (Auto) 3.0, Basophils (%) (Auto) 1.5, Prothrombin Time 10.0, Prothromb Time International Ratio 0.9, Activated Partial Thromboplast Time 24, Sodium Level 136, Potassium Level 5.2H, Chloride Level 97L, Carbon Dioxide Level 29, Anion Gap 10, Blood Urea Nitrogen 37H, Creatinine 6.0H, Estimat Glomerular Filtration Rate 9.4, Glucose Level 179H, Calcium Level 9.2, Total Bilirubin 0.6, Aspartate Amino Transf (AST/SGOT) 34, Alanine Aminotransferase (ALT/SGPT) 29, Alkaline Phosphatase 95, Total Protein 7.7, Albumin 3.9, Globulin 3.8, Albumin/Globulin Ratio 1.0 08/02/18 17:15: Potassium Level 4.2 Height (Feet): 6 Height (Inches): 0.00 Weight (Pounds): 179 Allegra Aviles MD August 03, 2018 08:48
[2018-08-03] MEDS: Docusate 100mg cap ORAL SCH ×2 (09:23→21:52)
[2018-08-03] MEDS: Aspirin Baby 81mg ORAL SCH (09:24)
[2018-08-03] MEDS: Allopurinol 100mg Tab ORAL SCH (09:24)
--- NOTE | 2018-08-03 09:46 | NUR ---
*-* INSURANCE *-* ALL CLINICALS AND REVIEWS HAVE BEEN FAXED TO: [facility] F:[phone]
[2018-08-03 10:51] LABS: HEMATOCRIT 37.2 % (42.0-52.0); HEMOGLOBIN 12.7 G/DL (14.2-18.0); LYMPHOCYTES % (AUTO) 20.1 % (20.0-45.0); MEAN CORPUSCULAR VOLUME 94 FL (80-99); MONOCYTES % (AUTO) 8.8 % (1.0-10.0); NEUTROPHILS % (AUTO) 68.1 % (45.0-75.0); PLATELET COUNT 233 K/UL (150-450); RED BLOOD COUNT 3.96 M/UL (4.70-6.10); RED CELL DISTRIBUTION WIDTH 13.8 % (11.6-14.8); WHITE BLOOD COUNT 7.9 K/UL (4.8-10.8)
[2018-08-03 11:00] LABS: ANION GAP 12 mmol/L (5-15); BLOOD UREA NITROGEN 54 mg/dL (7-18); CALCIUM 9.4 MG/DL (8.5-10.1); CARBON DIOXIDE 28 MMOL/L (21-32); CHLORIDE 97 MMOL/L (98-107); CREATININE 8.3 MG/DL (0.55-1.30); POTASSIUM 3.7 MMOL/L (3.5-5.1); SODIUM 137 MMOL/L (136-145)
[2018-08-03 11:03] LABS: INR 0.9 (0.9-1.1)
--- NOTE | 2018-08-03 11:30 | NUR ---
NURSE NOTES: INSULIN HOLD BEFORE PROCEDURE, Dr IRAHETA IS AWARE.
--- NOTE | 2018-08-03 12:25 | NUR ---
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 TO [facility] [place] [facility] CC:GENERAL COMPLAINT SI:AV SHUNT MALFUNCTION VS: BP 130/69, P 81, T 98.6, RR 21, Sp02 98 RBC 3.96, H&H 12.4/36.8, K 5.2, BUN 37, CR 6.0 CXR: There is a right jugular permacath in good position. IS:RISPERIDONE 1mg FLOMAX 0.4mg LIPITOR 10mg LEVEMIR SUBQ ADMITTED TO MED/SURG DCP: RETURN TO [facility]
--- NOTE | 2018-08-03 13:04 | NUR ---
NURSE NOTES: Dialysis nurse FAUSTO called and stated because procedure hasn't done yet, she will do dialysis tomorrow, and she stated Dr BARRY is notified and accepted. will continue to monitor.
--- NOTE | 2018-08-03 15:45 | NUR ---
NURSE NOTES:WOUND CARE NOTES:Pt presented on admission with non-blanchable erythema cleft of buttocks and bilat ischial areas. Non-tender when palpated.Raised erythematous skin lesion noted to L groin area. Non-blanchable erythema with fluctuance noted to lateral R heel. Pt verbalized tenderness when heel palpated . L heel is firm and blanchable. No evidence of skin breakdown noted to all other bony prominences. Tx.Plan: Apply Moisture Barrier paste to sacrum. Cover with Optifoam drsg. Change every 3 days and prn. Apply Moisture barrier paste to scrotum and cleft of buttocks with each incontinence care. Apply Cavilon Skin Barrier to both heels. Cover each heel with Optifoam drsg. Change every 7 days and prn. Reposition at least every 2hours or as tolerated. Off-load heels with pillow.
[2018-08-03] MEDS ORDERED: Midazolam 2mg/2ml Inj ONE (15:48)
[2018-08-03] MEDS ORDERED: fentaNYL 100 mcg/2 mL IV ONE (15:48)
[2018-08-03] MEDS ORDERED: Lidocaine 1% MPF 10mg/ml 5ml ONE (15:48)
[2018-08-03] MEDS ORDERED: Propofol 200mg/20ml IV ONE (15:48)
[2018-08-03] MEDS ORDERED: NS Irrig 1000ml ONE (16:00)
[2018-08-03] MEDS ORDERED: Sterile Water Irrig 1000ml IRRIG ONE (16:00)
--- NOTE | 2018-08-03 16:00 | NUR ---
NURSE NOTES: pt is stable, V/S stable, pt is still NPO, Dr IRAHETA sent dictation number [id number] that pt can't sign consent form, dictation number given to OR. Pt left unit to OR. waiting to come back.
--- NOTE | 2018-08-03 16:03 | Anethesia Preoperative Eval ---
Anesthesia Pre-op PMH/ROS General Date of Evaluation: August 03, 2018 Time of Evaluation: 15:58 Anesthesiologist: Obdulio ASA Score: ASA 3 Mallampati Score Class I : Soft palate, uvula, fauces, pillars visible Class II: Soft palate, uvula, fauces visible Class III: Soft palate, base of uvula visible Class IV: Only hard plate visible Mallampati Classification: Class II Surgeon: Jermaine Diagnosis: Malfunctioning A-V fistula Surgical Procedure: Revision of A-V fistula Anesthesia History: none Family History: no anesthesia problems Allergies: Coded Allergies: PENICILLINS (Verified Allergy, Unknown, 04/26/18) Medications: see eMAR Patient NPO?: Yes NPO Date: August 03, 2018 NPO Time: 1200 Past Medical History Cardiovascular: Reports: HTN; Denies: CAD, [place], valve dz, arrhythmia, other Pulmonary: Denies: asthma, COPD, ROSIE, other Gastrointestinal/Genitourinary: Reports: GERD, ESRD - on HD; Denies: CRI, other Neurologic/Psychiatric: Reports: depression/anxiety; Denies: dementia, CVA, TIA, other Endocrine: Reports: DM, hypothyroidism; Denies: steroids, other HEENT: Denies: cataract (L), cataract (R), glaucoma, [place] (L), [place] (R), other Hematology/Immune: Reports: anemia - mild; Denies: DVT, bleeding disorder, other Musculoskeletal/Integumentary: Denies: OA, RA, DJD, DDD, edema, other PMH Narrative: as above PSxH Narrative: see H&P Anesthesia Pre-op Phys. Exam Physician Exam Last Vital Signs Date Time Temp Pulse Resp B/P (MAP) Pulse Ox O2 Delivery O2 Flow Rate FiO2 08/03/18 11:59 98.2 88 20 132/77 (95) 96 08/03/18 09:00 Room Air Constitutional: NAD Neurologic: CN 2-12 intact Cardiovascular: RRR, no M/R/G Respiratory: CTA Gastrointestinal: S/NT/ND Airway Exam Mallampati Score: Class II MO: limited Neck: stiff ROM: limited Teeth: missing Dentures: no upper, no lower Anesthesia Pre-op A/P Labs Hematology Test 08/03/18 09:45 White Blood Count 7.9 K/UL (4.8-10.8) Red Blood Count 3.96 M/UL (4.70-6.10) L Hemoglobin 12.7 G/DL (14.2-18.0) L Hematocrit 37.2 % (42.0-52.0) L Mean Corpuscular Volume 94 FL (80-99) Mean Corpuscular Hemoglobin 32.1 PG (27.0-31.0) H Mean Corpuscular Hemoglobin Concent 34.2 G/DL (32.0-36.0) Red Cell Distribution Width 13.8 % (11.6-14.8) Platelet Count 233 K/UL (150-450) Mean Platelet Volume 5.9 FL (6.5-10.1) L Neutrophils (%) (Auto) 68.1 % (45.0-75.0) Lymphocytes (%) (Auto) 20.1 % (20.0-45.0) Monocytes (%) (Auto) 8.8 % (1.0-10.0) Eosinophils (%) (Auto) 2.0 % (0.0-3.0) Basophils (%) (Auto) 1.0 % (0.0-2.0) Coagulation Test 08/03/18 09:45 Prothrombin Time 9.9 SEC (9.30-11.50) Prothromb Time International Ratio 0.9 (0.9-1.1) Activated Partial Thromboplast Time 26 SEC (23-33) Chemistry Test 08/02/18 17:15 08/03/18 09:45 Potassium Level 4.2 MMOL/L (3.5-5.1) 3.7 MMOL/L (3.5-5.1) Sodium Level 137 MMOL/L (136-145) Chloride Level 97 MMOL/L (98-107) L Carbon Dioxide Level 28 MMOL/L (21-32) Anion Gap 12 mmol/L (5-15) Blood Urea Nitrogen 54 mg/dL (7-18) H Creatinine 8.3 MG/DL (0.55-1.30) H Estimat Glomerular Filtration Rate 6.5 mL/min (>60) Glucose Level 169 MG/DL (74-106) H Calcium Level 9.4 MG/DL (8.5-10.1) Studies Pre-op Studies: EKG - SR Risk Assessment & Plan Assessment: ASA 3 Plan: GA with LMA Status Change Before Surgery: No Pre-Antibiotics Drug: Ancef 1gr Given Within 1 Hr of Incision: Yes Time Given: 16:30 Cullen Mak MD August 03, 2018 16:03
[2018-08-03] MEDS ORDERED: Bacitracin Oint 15gm Tube TOPIC ONE (16:07)
[2018-08-03] MEDS ORDERED: Heparin 5000 units/ml inj ONE (16:07)
[2018-08-03] MEDS ORDERED: Heparin 1000 units/ml 1ml Vial ONE (16:07)
[2018-08-03] MEDS ORDERED: Lidocaine 1% Plain 30 ml INJ ONE (16:08)
[2018-08-03] MEDS ORDERED: Bupivacaine w/Epi 0.5% 30ml Vial INJ ONE (16:08)
[2018-08-03] MEDS ORDERED: Bacitracin 50000 Units Vial ONE (16:08)
[2018-08-03] MEDS ORDERED: NS Irrig 1000ml IRRIG ONE ×2 (16:29→17:10)
--- NOTE | 2018-08-03 16:44 | Pre-Procedure Note/Attestation ---
Pre-Procedure Note/Attestation Complete Prior to Procedure Planned Procedure: left Procedure Narrative: left arm AVF exploration, possible revision, transposition, dialysis catheter replacement Indications for Procedure Pre-Operative Diagnosis: ESRD Attestation I attest that I discussed the nature of the procedure; its benefits; risks and complications; and alternatives (and the risks and benefits of such alternatives ), prior to the procedure, with the patient (or the patient's legal personal service representative). I attest that, if there was a reasonable possibility of needing a blood transfusion, the patient (or the patient's legal personal service representative) was given the [facility] standardized written summary, pursuant to the [place] Blood Safety Act ([place] Health and Safety Code # 1645, as amended). I attest that I re-evaluated the patient just prior to the surgery and that there has been no change in the patient's H&P, except as documented below: Pt is unable to give consent due to baseline mental status. No next of kin or conservator available. 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 Malik Dean MD August 03, 2018 16:44
--- NOTE | 2018-08-03 19:26 | Immediate Post-Op Evaluation ---
Immediate Post-Op Evalulation Immediate Post-Op Evalulation Procedure: Revision of L arm A-V fistula Date of Evaluation: August 03, 2018 Time of Evaluation: 19:25 IV Fluids: 500 Blood Products: none Estimated Blood Loss: 50 Urinary Output: none Blood Pressure Systolic: 156 Blood Pressure Diastolic: 67 Pulse Rate: 78 Respiratory Rate: 20 O2 Sat by Pulse Oximetry: 98 Temperature (Fahrenheit): 97.6 Pain Score (1-10): 2 Nausea: No Vomiting: No Complications none Patient Status: awake, patent, none Hydration Status: adequate Cullen Mak MD August 03, 2018 19:26
[2018-08-03] MEDS ORDERED: Midazolam 2mg/2ml Inj IVP PRN (19:30)
[2018-08-03] MEDS ORDERED: DiphenhydrAMINE 50mg/ml Inj IVP PRN (19:30)
[2018-08-03] MEDS ORDERED: Ketorolac 30mg Inj IV PRN (19:30)
[2018-08-03] MEDS ORDERED: Hydromorphone 0.5mg/0.5ml inj IVP PRN (19:30)
--- NOTE | 2018-08-03 19:33 | Brief Operative Note ---
Immediate Post Operative Note Operative Note Pre-op Diagnosis: ESRD Procedure: left basilic vein transposition AVF creation and ligation of old one in LUE Post-op Diagnosis: same as pre-op Findings: consistent w/pre-op dx studies Surgeon: Rikki Dean Anesthesiologist: Lindsay Mak Anesthesia: general Specimen: none Complications: none Condition: stable Fluids: see anesth. record Estimated Blood Loss: minimal Drains: none Implant(s) used?: No Malik Dean MD August 03, 2018 19:33
--- NOTE | 2018-08-03 19:33 | NUR ---
HAND-OFF: Report given to NAEL WARREN. PT STILL HASN'T COME BACK FROM OR.
--- NOTE | 2018-08-03 20:04 | 48 Hour Post Anesthesia Eval ---
Post Anesthesia Evaluation Procedure: Revision of L arm A-V fistula Date of Evaluation: August 03, 2018 Time of Evaluation: 20:03 Blood Pressure Systolic: 132 0: 76 Pulse Rate: 76 Respiratory Rate: 20 Temperature (Fahrenheit): 97.5 O2 Sat by Pulse Oximetry: 98 Airway: patent Nausea: No Vomiting: No Pain Intensity: 2 Hydration Status: adequate Cardiopulmonary Status: stable Mental Status/LOC: patient returned to baseline Follow-up Care/Observations: n/a Post-Anesthesia Complications: none Follow-up care needed: N/A Cullen Mak MD August 03, 2018 20:04
--- NOTE | 2018-08-03 20:05 | NUR ---
NURSE NOTES: Patient came back from OR. No s/s of distress noted. A&OX2, confused. Left upper arm AV shunt noted, Dressing dry and intact, bruit and thrill present. IV site patent and intact. Bed in lowest position. Call light within reach. Will continue to monitor.
--- NOTE | 2018-08-03 21:15 | NUR ---
NURSE NOTES: Obtained diet order from Dr. Aviles.
--- NOTE | 2018-08-03 21:23 | NUR ---
NURSE NOTES: Patient c/o pain. Obtained order of Morphine 2mg IVP q6hrs for severe pain from Dr. Aviles.
[2018-08-03] MEDS: Morphine Sulfate 2mg/ml Inj(IV/IM USE ONLY) IVP PRN (21:49)
[2018-08-03] MEDS: Levemir Flexpen SUBQ SCH (21:50)
[2018-08-03] MEDS: Tamsulosin 0.4mg cap ORAL SCH (21:52)
[2018-08-04] VITALS: BP 129/60
--- NOTE | 2018-08-04 00:15 | Progress Note ---
DATE: 08/03/2018 SUBJECTIVE AND OBJECTIVE: The patient appears confused. COMMENT: This note is generated based on the request by the vascular surgeon. The patient remains having the lack of the capacity of making decisions. Given the emergency nature of the procedure of the shunt placements, he is medically justified to proceed with the procedure. Nurse has made adequate efforts to locate the next of kin, however, again given the nature of this procedure, it is justified to proceed. The consent has been provided and signed by the other doctor, Nephrology as well. Allegar Aviles M.D. DR: VALERIE JOB#: [id number] CC:
[2018-08-04] MEDS: Morphine Sulfate 2mg/ml Inj(IV/IM USE ONLY) IVP PRN ×2 (04:06→17:07)
--- NOTE | 2018-08-04 05:50 | NUR ---
NURSE NOTES: Patient refused blood lab draw at this time. Patient wants come back later.
[2018-08-04] MEDS: NovoLOG Insulin Flexpen SUBQ SCH ×3 (06:19→17:19)
--- NOTE | 2018-08-04 07:15 | Progress Note ---
DATE: 08/03/2018 SUBJECTIVE: The patient is in bed. He continues to be presenting with disorganized speech and behavior, has memory impairment. Unable to understand, process, communicate nor appreciate the information that was given to him. The patient . MENTAL STATUS EXAMINATION: The patient is alert, confused, and disoriented. Mood is agitated. Affect is constricted, congruent with mood. Thought process is concrete. Thought content, no suicidal or homicidal ideation. Memory is impaired. ASSESSMENT: Dementia with behavior disturbance. The patient lacks capacity to make decisions. PLAN: 1. We will continue the risperidone p.r.n. 2. as the patient lacks capacity. Karolyn Rendon M.D. DR: JESSICA JOB#: [id number] CC:
--- NOTE | 2018-08-04 07:30 | NUR ---
HAND-OFF: Report given to Linda NAYAK.
--- NOTE | 2018-08-04 07:52 | NUR ---
NURSE NOTES:\ Patient is awake and alert to name, but confused,reoriented patient.Respirations are unlabored.Noted Permacath in place to upper right chest.Patient has AV shunt to to the Left arm with strong bruit and thrill.Mark wrap dressing to the arm os clean.Noted patient has condom catheter with yellow urine noted in collection bag.Patient ate breakfast.Dialysis Nurse is here at this time.Bed alarm is on,call light within reach.
[2018-08-04 08:00] VITALS: BP 132/79
[2018-08-04 08:51] LABS: ANION GAP 11 mmol/L (5-15); BLOOD UREA NITROGEN 63 mg/dL (7-18); CALCIUM 8.8 MG/DL (8.5-10.1); CARBON DIOXIDE 27 MMOL/L (21-32); CHLORIDE 100 MMOL/L (98-107); CREATININE 8.3 MG/DL (0.55-1.30); POTASSIUM 4.1 MMOL/L (3.5-5.1); SODIUM 138 MMOL/L (136-145)
--- NOTE | 2018-08-04 09:00 | NUR ---
NURSE NOTES: Patient receiving dialysis at this time,bed scale not working not able to do weight.
[2018-08-04] MEDS: Aspirin Baby 81mg ORAL SCH (11:16)
[2018-08-04] MEDS: Docusate 100mg cap ORAL SCH (11:17)
[2018-08-04] MEDS: Allopurinol 100mg Tab ORAL SCH (11:19)
[2018-08-04 12:00] VITALS: BP 136/73
--- NOTE | 2018-08-04 12:38 | Nephrology Progress Note ---
Assessment/Plan Assessment/Plan: A/P 1) ESRD- Had HD today - OK for Dc from renal point 2) NonFx AVF- s/p revision of L arm A-V fistula 3) Gout- allopurinol 4) DM - per PCP Subjective Date patient seen: August 04, 2018 Time patient seen: 12:35 ROS Limited/Unobtainable: Yes Allergies: Coded Allergies: PENICILLINS (Verified Allergy, Unknown, 04/26/18) Subjective Patient slightly agitated at baseline. No overt distress Objective Last 24 Hour Vital Signs Date Time Temp Pulse Resp B/P (MAP) Pulse Ox O2 Delivery O2 Flow Rate FiO2 08/04/18 10:24 Room Air 08/04/18 08:00 99.5 116 20 132/79 (96) 93 08/04/18 00:00 98.4 101 18 129/60 (83) 96 08/03/18 21:00 Room Air 08/03/18 20:04 97.4 85 18 148/74 96 Room Air 08/03/18 20:04 76 20 98 08/03/18 20:00 98.2 86 19 142/53 (82) 97 08/03/18 19:54 86 17 152/75 96 Room Air 08/03/18 19:44 87 18 145/67 98 Nasal Cannula 2.0 08/03/18 19:34 88 19 135/66 100 Simple Mask 6.0 08/03/18 19:29 79 20 161/65 100 Simple Mask 6.0 08/03/18 19:26 78 20 98 08/03/18 19:24 97.4 76 22 146/67 100 Simple Mask 6.0 08/03/18 16:00 98.0 80 20 130/75 (93) 96 Intake and Output 08/03/18 08/04/18 19:00 07:00 Intake Total 200 ml Output Total 1 ml Balance 199 ml IV Total 200 ml Output Urine Total 1 ml # Voids 3 1 Laboratory Tests 08/04/18 08:30: Sodium Level 138, Potassium Level 4.1, Chloride Level 100, Carbon Dioxide Level 27, Anion Gap 11, Blood Urea Nitrogen 63H, Creatinine 8.3H, Estimat Glomerular Filtration Rate 6.5, Glucose Level 177H, Calcium Level 8.8 Height (Feet): 6 Height (Inches): 0.00 Weight (Pounds): 179 General Appearance: no apparent distress, agitated EENT: normal ENT inspection Neck: normal alignment, supple Cardiovascular: normal rate, regular rhythm Respiratory/Chest: lungs clear, normal breath sounds Abdomen: non tender, soft Edema: no edema noted Arm (L), no edema noted Arm (R), no edema noted Leg (L), no edema noted Leg (R), no edema noted Pedal (L), no edema noted Pedal (R), no edema noted Generalized Thang Munguia MD August 04, 2018 12:38
--- NOTE | 2018-08-04 13:35 | NUR ---
CHARGE NURSE NOTES: CALLED [facility] TO INQUIRE ABOUT PATIENT ACCEPTANCE, ON HOLD FOR 15MINS. WILL FOLLOW UP.
--- NOTE | 2018-08-04 13:51 | General Progress Note ---
Assessment/Plan Assessment/Plan: S: I am ok O: poor historian, lack of capacity . appears comfortable PHYSICAL EXAMINATION: GENERAL: The patient is awake, alert, and not in distress. HEENT: Extraocular muscles intact. No lymphadenopathy noted.Oropharyngeal mucosa is clear and dry. CARDIOVASCULAR: S1, S2. No rubs or gallops.PULMONARY: Clear to auscultation bilaterally. No rales, rhonchi, or wheezes.ABDOMINAL: Nondistended and nontender.EXTREMITY: No edema noted. LABORATORY DATA: Laboratories dated 08/03/2018 reviewed Medication : Reviewed and reconciled in the chart ASSESSMENT AND PLAN: 1. End-stage renal disease, on hemodialysis. 2. Mild hyperkalemia. 3. Nonfunctioning AV fistula. At this time, surgery has been consulted for revision in the morning. 4. Hypertension. We will adjust medications as deemed appropriate. 5. Diabetes mellitus. At this time, the patient will be placed on insulin sliding scale along with low carbohydrate diet and continue his home Levemir. 6. DVT prophylaxis with SCDs. Plan: post Revision of AVF, per Dr Dean Medically stable post procedure Subjective Allergies: Coded Allergies: PENICILLINS (Verified Allergy, Unknown, 04/26/18) Objective Last 24 Hour Vital Signs Date Time Temp Pulse Resp B/P (MAP) Pulse Ox O2 Delivery O2 Flow Rate FiO2 08/04/18 10:24 Room Air 08/04/18 08:00 99.5 116 20 132/79 (96) 93 08/04/18 00:00 98.4 101 18 129/60 (83) 96 08/03/18 21:00 Room Air 08/03/18 20:04 97.4 85 18 148/74 96 Room Air 08/03/18 20:04 76 20 98 08/03/18 20:00 98.2 86 19 142/53 (82) 97 08/03/18 19:54 86 17 152/75 96 Room Air 08/03/18 19:44 87 18 145/67 98 Nasal Cannula 2.0 08/03/18 19:34 88 19 135/66 100 Simple Mask 6.0 08/03/18 19:29 79 20 161/65 100 Simple Mask 6.0 08/03/18 19:26 78 20 98 08/03/18 19:24 97.4 76 22 146/67 100 Simple Mask 6.0 08/03/18 16:00 98.0 80 20 130/75 (93) 96 Intake and Output 08/03/18 08/04/18 18:59 06:59 Intake Total 200 ml Output Total 1 ml Balance 199 ml IV Total 200 ml Output Urine Total 1 ml # Voids 3 1 Laboratory Tests 08/04/18 08:30: Sodium Level 138, Potassium Level 4.1, Chloride Level 100, Carbon Dioxide Level 27, Anion Gap 11, Blood Urea Nitrogen 63H, Creatinine 8.3H, Estimat Glomerular Filtration Rate 6.5, Glucose Level 177H, Calcium Level 8.8 Height (Feet): 6 Height (Inches): 0.00 Weight (Pounds): 179 Allegra Aviles MD August 04, 2018 13:51
--- NOTE | 2018-08-04 15:03 | NUR ---
CASE MANAGEMENT: REVIEW SI: AV SHUNT MALFUNCTION . ESRD L ARM AV SHUNT REVISION, DIALYSIS CATHETER PLACEMENT 08/02 T 99.5 HR 116 RR 20 BP 132/79 SAT 93% ROOM AIR BUN 63 CR 8.3 IS: KEPPRA PO Q12HR SEVELAMER PO TIAC LEVEMIR SQ QHS MED/SURG STATUS DCP: PATIENT IS FROM [facility]
--- NOTE | 2018-08-04 15:08 | NUR ---
CASE MANAGEMENT: DCPNOTE UPON DISCHARGE PATIENT WILL RETURN TO [facility] [phone] PH / [phone] FAX CARE HOME ROOM #[id number] [facility] CALLED [phone] ( NO VOICEMAIL , UNABLE TO LEAVE MESSAGE ) TRANSPORTATION VIA [facility] [id number] ETA 17:00
[2018-08-04 16:00] VITALS: BP 133/77
--- NOTE | 2018-08-04 17:38 | NUR ---
NURSE NOTES: Report given to MIKO NAYAK at [facility].NAEL CROUCH aware Dialysis Catheter per DR Dean not to use AV fistula for Dialysis until further order., no Heparin .Patient has Permacath in the Right upper chest to be use for Dialysis.Per DR Dean order dressing change Q day x 5days to the Left ARM AV shunt. 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
--- NOTE | 2018-08-04 19:12 | NUR ---
NURSE NOTES: [facility] Personnel here to transport patient back to [facility].ID hospital band removed.IV saline lock removed.Right chest permacath remains intact.AV shunt in the left arm ,madelin wrap dressing intact and clean.Bruit and thrill remains strong.Patient has his personal belongings.
--- NOTE | 2018-08-06 11:47 | Discharge Summary ---
Discharge Summary Discharge Summary _ DATE OF ADMISSION: 08/02/2018 DATE OF DISCHARGE: 08/04/2018 DISCHARGED BY: Dr Aviles REASON FOR ADMISSION: 68 years old male with past medical history of end-stage renal disease, hemodialysis, hypertension, diabetes mellitus, hyperlipidemia, anemia, seizure disorder, gout, secondary hyperparathyroidism, was sent to the hospital due to nonfunctioning AV fistula. Patient had dialysis on the day prior to presentation to ED. Upon evaluation patient had no leukocytosis , hemoglobin 12.4 , hematocrit 36.8 . Potassium was 5.2 BUN 37 creatinine 6.0. Patient admitted for nonfunctioning AV shunt revision. CONSULTANTS: police liaison Dr.De Montiel vascular surgery Dr. Dean psychiatrist [facility] COURSE: Patient admitted. Cargo Bracer and vascular surgeon closely followed. Patient subsequently undergone on left basilic vein transposition with arteriovenous fistula creation and ligation of the old one in the left upper extremity. Pain management was addressed. Patient received broad spectrum perioperative antibiotics. Hemodialysis provided as per police liaison recommendations with close monitoring of volumes , renal parameters and electrolytes . Electrolytes further corrected as needed. Hyperkalemia resolved . Renvela continued. Blood pressure was managed with current regimen and remained stable. Statin and antiplatelet therapy continued. Blood sugar was managed with long-acting Levemir and sliding scale of short acting insulin as needed. Diabetic diet provided. Allopurinol continued. DVT and GI prophylaxis provided. Seizure precaution maintained. Keppra continued. Hemoglobin and hematocrit were closely monitored, remained at the baseline . Prior to discharge hemoglobin 12.7 , hematocrit 37.2. Psychiatrist followed. Per psychiatrist patient has dementia with behavioral disturbances. Patient lacks capacity to make decision , as per psychiatrist conclusion. Patient was continued on risperidone on as-needed basis. Patient clinically stabilized and was ready for transfer back to the retirement facility for continuation of care. FINAL DIAGNOSES: Nonfunctioning AV fistula Status post revision of left arm AV fistula End-stage renal disease, on hemodialysis Mild hyperkalemia-resolved Hypertension Diabetes mellitus Gout Dementia with behavioral disturbances DISCHARGE MEDICATIONS: See Medication Reconciliation list. DISCHARGE INSTRUCTIONS: Patient was discharged to the retirement facility. Follow up with medical doctor at the facility. Follow up with outpatient hemodialysis as scheduled. I have been assigned to dictate discharge summary for this account. I was not involved in the patient's management. Kyleigh Conrad NP August 06, 2018 11:47
--- NOTE | 2018-08-06 19:48 | Cardiology Report ---
APPROVED REPORT EKG Measurement Heart [id number] Normal sinus rhythm Normal ECG
--- NOTE | 2018-08-07 04:45 | Operative Note - Dictated ---
DATE OF OPERATION: 08/03/2018 PREOPERATIVE DIAGNOSES: 1. Inaccessible dialysis arteriovenous fistula in the left upper extremity. 2. End-stage renal disease. POSTOPERATIVE DIAGNOSES: 1. Inaccessible dialysis arteriovenous fistula in the left upper extremity. 2. End-stage renal disease as well as findings below. PROCEDURES: 1. Left basilic vein transposition arteriovenous fistula creation in the left upper arm. 2. Ligation of the old dialysis arteriovenous fistula. SURGEON: Malik Dean M.D. ANESTHESIA: General. ANESTHESIOLOGIST: Cullen Mak M.D. INDICATION: The patient has an AV fistula in the left arm, which is patent; however, it is deep and cannot be accessed for dialysis and he has been dialyzing through a tunneled catheter. A fistulogram showed adequate basilic vein for transposition. INTRAOPERATIVE FINDINGS: The basilic vein as well as a portion of the duplicated brachial vein was used to create the transposition of AV fistula as described below and the fistula had a good thrill at the end of the procedure and ipsilateral radial pulse is present at left wrist level. PROCEDURE IN DETAIL: With the patient under anesthesia and after left upper extremity was prepped and draped in the usual sterile fashion, skin was also infiltrated with local anesthetic. An incision was made over the course of the basilic vein in the left upper arm through which the vein was exposed, and because of the distal segment near the anastomosis appearing sclerotic, the brachial vein for this length was also exposed up to a point where it joined the remainder of the basilic vein in the upper arm and the vein was ligated distally and divided. The existing AV fistula was also ligated on the venous side near the arterial anastomosis and divided and the stump of the vein oversewn with a continuous suture of 6-0 Prolene in two layers and also tied with silk ties. The tributaries of the vein were divided between silk ties and hemoclips were necessary and the entire length of usable vein for transposition was therefore mobilized and flushed with heparinized saline in order to be patent. Serial dilators up to a 4 mm diameter were passed without significant resistance, and after a curvilinear subcutaneous tunnel was created just lateral to the incision and maintained with Bueno catheter, the vein was brought through the subcutaneous tunnel and the end spatulated. A longitudinal arteriotomy was made in the brachial artery, which was exposed more proximal to the old AV fistula anastomotic site and controlled with vessel loops proximally and distally and osteotomy placed between the vessel loops through which the vessel was flushed with heparinized saline proximally and distally and end-to-side anastomosis to the vein was then carried out with a continuous suture of 6-0 Prolene. After removal of the vessels, excellent thrill to the vein was noted and a possible thrill and ipsilateral radial pulse were present. After hemostasis was ensured, the wound was irrigated with antibiotic solution and closed with interrupted sutures of 2-0 and 3-0 Vicryl for deep layer followed by 4-0 Monocryl in subcuticular continuous fashion for skin closure. Antibiotic ointment and dressings were applied, and the patient was brought out of anesthesia and transferred to PACU in stable condition. He tolerated the procedure well. At the conclusion of the procedure, sponge, needle, and instrument counts were correct. ESTIMATED BLOOD LOSS: Minimal. COMPLICATIONS: None. DRAINS: None. SPECIMENS: None. Malik Dean M.D. DR: GUNNER JOB#: [id number] CC: Danielito Sahni M.D.
== END 2018-08-04 19:20 | DRG 182 ==
LOC: EMR 10:00 → 4E 11:45 → EDBEDREQSVC 12:45 → EDBEDREQ 12:45 → 4E 14:39
PROC: 05LA0ZZ Occlusion of Left Brachial Vein, Open Approach (ICD-10-PCS; 2018-08-03)
PROC: 03180AD Bypass Left Brachial Artery to Upper Arm Vein with Autologous Arterial Tissue, Open Approach (ICD-10-PCS; 2018-08-03)
PROC: 05SC0ZZ Reposition Left Basilic Vein, Open Approach (ICD-10-PCS; principal; 2018-08-03 11:30)
DX: T82.41XA Breakdown (mechanical) of vascular dialysis catheter, initial encounter (principal); E11.22 Type 2 diabetes mellitus with diabetic chronic kidney disease; F03.91 Unspecified dementia, unspecified severity, with behavioral disturbance; N18.6 End stage renal disease; E87.5 Hyperkalemia; Y84.1 Kidney dialysis as the cause of abnormal reaction of the patient, or of later complication, without mention of misadventure at the time of the procedure; Z99.2 Dependence on renal dialysis; E78.5 Hyperlipidemia, unspecified; D63.1 Anemia in chronic kidney disease; E21.3 Hyperparathyroidism, unspecified; Z88.0 Allergy status to penicillin; M10.9 Gout, unspecified
CPT/HCPCS: 36415; 71045; 80048; 80053; 80299; 82962; 84132; 85025; 85610; 85730; 86850; 86900; 86901; 87081; 93005; 94003; 94150; 99285; J1815; J2250; S5561

== ENCOUNTER 2018-09-06 10:37 | Emergency (ER) | payer MEDICARE, MEDICAID ==
[~2018-09-06] VITALS: Ht 175.3 cm; Wt 72.6 kg
[2018-09-06 11:00] VITALS: BP 142/87
[2018-09-06] MEDS ORDERED: LORazepam Inj 2mg/ml 1ml ONE (11:14)
[2018-09-06 11:15] LABS: EOSINOPHILS % (AUTO) 5.2 % (0.0-3.0); HEMATOCRIT 39.6 % (42.0-52.0); HEMOGLOBIN 13.5 G/DL (14.2-18.0); LYMPHOCYTES % (AUTO) 27.2 % (20.0-45.0); MEAN CORPUSCULAR VOLUME 96 FL (80-99); MONOCYTES % (AUTO) 10.6 % (1.0-10.0); PLATELET COUNT 160 K/UL (150-450); RED BLOOD COUNT 4.13 M/UL (4.70-6.10); RED CELL DISTRIBUTION WIDTH 14.3 % (11.6-14.8); WHITE BLOOD COUNT 6.1 K/UL (4.8-10.8)
[2018-09-06] MEDS ORDERED: LORazepam Inj 2mg/ml 1ml IV ONE (11:15)
[2018-09-06] MEDS ORDERED: LORazepam 1mg tab ORAL ONE (11:15)
[2018-09-06 11:26] LABS: ANION GAP 11 mmol/L (5-15); BLOOD UREA NITROGEN 52 mg/dL (7-18); CARBON DIOXIDE 30 MMOL/L (21-32); CHLORIDE 97 MMOL/L (98-107); CREATININE 6.1 MG/DL (0.55-1.30); POTASSIUM 5.1 MMOL/L (3.5-5.1); SODIUM 138 MMOL/L (136-145)
[2018-09-06 11:28] LABS: ALANINE AMINOTRANSFERASE 25 U/L (12-78); ALBUMIN 4.7 G/DL (3.4-5.0); ALBUMIN/GLOBULIN RATIO 1.6 (1.0-2.7); ALKALINE PHOSPHATASE 120 U/L (46-116); ASPARTATE AMINO TRANSFERASE 11 U/L (15-37); BILIRUBIN,TOTAL 0.6 MG/DL (0.2-1.0)
--- NOTE | 2018-09-06 11:30 | NUR ---
ED Nurse Note: pt brought by private ambulance from home with caregiver for eval on dialysis access. pt has AV shunt on left upper arm, dressing noted. quantum catheter on right upper chest. on dialysis every MWF. last one done yesterday. AAO x2. confused on time and purpose. pt is uncooperative, needs time to explain the procedure more. pt follow the command with explanation. IV on right forearm, applied kerlix. skin warm to touch. no open wound noted. pt came with diaper. on cardiac nurse practitioner. denies any pain. respirations even and non-labored noted. will wait for the further order.
[2018-09-06] MEDS ORDERED: UNOBMED (11:40)
--- NOTE | 2018-09-06 12:00 | NUR ---
ED Nurse Note: Juliet, from surgery admitting, surgery canclled today. will wait for the further order.
[2018-09-06 12:29] VITALS: BP 135/76
--- NOTE | 2018-09-06 13:47 | NUR ---
ED Nurse Note: pt brought from custodial, [facility].
--- NOTE | 2018-09-06 15:29 | Emergency Room Report ---
History of Present Illness General Chief Complaint: General Complaint Source: Medical Record Present Illness HPI Patient is a 68-year-old male brought in by facility after increased problem with his dialysis shunt. Patient had previous history of psychosis. Patient states that he wants to go home. He reportedly was brought to the hospital for evaluation of his shunt via fistulogram. He has dialysis normally Monday and Monday. Allergies: Coded Allergies: PENICILLINS (Verified Allergy, Unknown, 04/26/18) Patient History Past Medical History: see triage record Reviewed Nursing Documentation: PMH: Agreed; PSxH: Agreed Nursing Documentation-PMH Past Medical History: No History, Except For Hx Cardiac Problems: Yes Hx Hypertension: Yes Hx Diabetes: Yes Hx Cancer: No Hx Gastrointestinal Problems: Yes Hx Dialysis: Yes - MON/MON/MON-SHUNT right ANTICUBITAL Hx Neurological Problems: Yes Hx Seizures: Yes Review of Systems All Other Systems: negative except mentioned in HPI Physical Exam Vital Signs Date Time Temp Pulse Resp B/P (MAP) Pulse Ox O2 Delivery O2 Flow Rate FiO2 09/06/18 10:45 98.1 81 16 142/87 (105) 100 Room Air Sp02 EP Interpretation: reviewed, normal General Appearance: normal inspection, well appearing, no apparent distress, alert, GCS 15, Chronically Ill Head: atraumatic ENT: normal ENT inspection, hearing grossly normal, normal voice Neck: normal inspection, full range of motion, supple, no bony tend Respiratory: normal inspection, lungs clear, normal breath sounds, no respiratory distress, no retraction, no wheezing Cardiovascular #1: regular rate, rhythm, no edema Gastrointestinal: normal inspection, normal bowel sounds, non tender, soft, no guarding, no hernia Genitourinary: no CVA tenderness Musculoskeletal: normal inspection, back normal, normal range of motion Neurologic: normal inspection, alert, oriented x3, responsive, speech normal Psychiatric: normal inspection, judgement/insight normal, mood/affect normal Skin: normal inspection, normal color, no rash Medical Decision Making Diagnostic Impression: Primary Impression: Problem with dialysis access ER Course Patient presented for dialysis access problem. Differential diagnosis include was not limited to shunt failure, hyperkalemia, acute renal failure among others. Because of complexity of patient's case laboratory testing and imaging studies were ordered. Patient was noted to have prior history of psychosis. Patient was noted to have poor cooperation. Dr. Dean had previously scheduled for surgery to dialysis access. Patient's laboratory testing showed mildly elevated potassium at 5.1. Patient is awake and alert. Patient was discussed with Dr. Dean who presented for evaluation of dialysis access. Patient was noted to be awake and alert. Patient dialysis catheter was removed by Jermaine. Patient tolerated this well. Patient was sent back to his nursing facility. Laboratory Tests Test 09/06/18 11:04 White Blood Count 6.1 K/UL (4.8-10.8) Red Blood Count 4.13 M/UL (4.70-6.10) L Hemoglobin 13.5 G/DL (14.2-18.0) L Hematocrit 39.6 % (42.0-52.0) L Mean Corpuscular Volume 96 FL (80-99) Mean Corpuscular Hemoglobin 32.8 PG (27.0-31.0) H Mean Corpuscular Hemoglobin Concent 34.1 G/DL (32.0-36.0) Red Cell Distribution Width 14.3 % (11.6-14.8) Platelet Count 160 K/UL (150-450) Mean Platelet Volume 6.3 FL (6.5-10.1) L Neutrophils (%) (Auto) 56.0 % (45.0-75.0) Lymphocytes (%) (Auto) 27.2 % (20.0-45.0) Monocytes (%) (Auto) 10.6 % (1.0-10.0) H Eosinophils (%) (Auto) 5.2 % (0.0-3.0) H Basophils (%) (Auto) 1.0 % (0.0-2.0) Sodium Level 138 MMOL/L (136-145) Potassium Level 5.1 MMOL/L (3.5-5.1) Chloride Level 97 MMOL/L (98-107) L Carbon Dioxide Level 30 MMOL/L (21-32) Anion Gap 11 mmol/L (5-15) Blood Urea Nitrogen 52 mg/dL (7-18) H Creatinine 6.1 MG/DL (0.55-1.30) H Estimate Glomerular Filtration Rate 9.2 mL/min (>60) Glucose Level 148 MG/DL (74-106) H Calcium Level 10.0 MG/DL (8.5-10.1) Total Bilirubin 0.6 MG/DL (0.2-1.0) Aspartate Amino Transferase (AST) 11 U/L (15-37) L Alanine Aminotransferase (ALT) 25 U/L (12-78) Alkaline Phosphatase 120 U/L (46-116) H Total Protein 7.7 G/DL (6.4-8.2) Albumin 4.7 G/DL (3.4-5.0) Globulin 3.0 g/dL Albumin/Globulin Ratio 1.6 (1.0-2.7) Last Vital Signs Date Time Temp Pulse Resp B/P (MAP) Pulse Ox O2 Delivery O2 Flow Rate FiO2 09/06/18 12:29 91 12 135/76 98 Room Air 09/06/18 11:00 98.1 Status: improved Disposition: HOME, SELF-CARE Condition: Stable Referrals: NON PHYSICIAN (PCP) Felix Vasquez MD Sep 06, 2018 15:29
[2018-09-06] MEDS ORDERED: Morphine Sulfate 2mg/ml Inj(IV/IM USE ONLY) IVP ONE (15:30)
--- NOTE | 2018-09-06 15:30 | NUR ---
ED Nurse Note: Dr. Dean at the bed side for dialysis catheter removal on the right upper chest. pt tolerated the procedure.
[2018-09-06] MEDS ORDERED: Lidocaine 1% Plain 30 ml INJ ONE ×2 (15:49→16:00)
[2018-09-06 17:00] VITALS: BP 141/77
--- NOTE | 2018-09-06 17:02 | NUR ---
ED Nurse Note: awaiting for transportation. nursing superviosor will call us back for report.
--- NOTE | 2018-09-06 18:10 | NUR ---
ED Nurse Note: Reports given to Nursing Foreign Exchange Student Coordinator at [facility].
--- NOTE | 2018-09-06 18:11 | NUR ---
ED Nurse Note: pt transferred back to [facility] by [id number].
[2018-09-06 18:12] VITALS: BP 154/84
--- NOTE | 2018-09-08 19:34 | Cardiology Report ---
APPROVED REPORT EKG Measurement Heart [id number] [place] [id number] Normal sinus rhythm Normal ECG
== END 2018-09-06 18:13 ==
LOC: EDBEDREQ 11:09 → EMR 11:15 → UNDOADMOB 12:31 → 2E 12:31 → EDBEDREQ 14:14 → CANBEDREQ 15:00 → EDBEDREQ 15:21 → EMR 18:13
DX: T82.9XXA Unspecified complication of cardiac and vascular prosthetic device, implant and graft, initial encounter (principal); X58.XXXA Exposure to other specified factors, initial encounter; Y92.9 Unspecified place or not applicable; I10 Essential (primary) hypertension; Z99.2 Dependence on renal dialysis; E11.9 Type 2 diabetes mellitus without complications; G40.909 Epilepsy, unspecified, not intractable, without status epilepticus; Z88.0 Allergy status to penicillin
CPT/HCPCS: 36415; 80053; 85025; 93005; 96374; 96375; 99284; J2001; J2270

== ENCOUNTER 2018-09-13 05:39 | Day surgery (SDC) | payer MEDICARE, MEDICAID ==
[2018-09-13] VITALS (9 sets, daily range): BP systolic 102–142; BP diastolic 47–78
[~2018-09-13] VITALS: Ht 172.7 cm; Wt 71.7 kg
[~2018-09-13 05:39] MED LIST changes: +UNOBMED
[2018-09-13 07:53] LABS: BASOPHILS % (AUTO) 1.1 % (0.0-2.0); EOSINOPHILS % (AUTO) 6.4 % (0.0-3.0); HEMATOCRIT 38.7 % (42.0-52.0); HEMOGLOBIN 13.5 G/DL (14.2-18.0); MEAN CORPUSCULAR VOLUME 94 FL (80-99); MONOCYTES % (AUTO) 11.7 % (1.0-10.0); NEUTROPHILS % (AUTO) 54.9 % (45.0-75.0); PLATELET COUNT 167 K/UL (150-450); RED CELL DISTRIBUTION WIDTH 12.9 % (11.6-14.8); WHITE BLOOD COUNT 6.9 K/UL (4.8-10.8)
[2018-09-13 08:02] LABS: INR 0.9 (0.9-1.1)
[2018-09-13 08:07] LABS: ANION GAP 11 mmol/L (5-15); BLOOD UREA NITROGEN 72 mg/dL (7-18); CALCIUM 10.2 MG/DL (8.5-10.1); CARBON DIOXIDE 26 MMOL/L (21-32); CHLORIDE 100 MMOL/L (98-107); CREATININE 6.9 MG/DL (0.55-1.30); POTASSIUM 4.6 MMOL/L (3.5-5.1); SODIUM 137 MMOL/L (136-145)
--- NOTE | 2018-09-13 08:08 | Pre-Procedure Note/Attestation ---
Pre-Procedure Note/Attestation Complete Prior to Procedure Planned Procedure: left Procedure Narrative: left arm fistulogram, possible intervention Indications for Procedure Pre-Operative Diagnosis: AVF malfunction Attestation I attest that I discussed the nature of the procedure; its benefits; risks and complications; and alternatives (and the risks and benefits of such alternatives ), prior to the procedure, with the patient (or the patient's legal cash application representative). I attest that, if there was a reasonable possibility of needing a blood transfusion, the patient (or the patient's legal cash application representative) was given the [facility] Services standardized written summary, pursuant to the Prateek Michelle Blood Safety Act ([place] Health and Safety Code # 1645, as amended). I attest that I re-evaluated the patient just prior to the surgery and that there has been no change in the patient's H&P, except as documented below: Malik Dean MD Sep 13, 2018 08:08
[2018-09-13] MEDS ORDERED: Bupivacaine 0.5% Inj 30 ml vial INJ ONE (08:14)
[2018-09-13] MEDS ORDERED: Bacitracin 50000 Units Vial ONE (08:14)
[2018-09-13] MEDS ORDERED: Lidocaine 1% Plain 30 ml INJ ONE (08:14)
[2018-09-13] MEDS ORDERED: Bacitracin Oint 15gm Tube TOPIC ONE (08:14)
[2018-09-13] MEDS ORDERED: Heparin 1000 units/ml 1ml Vial ONE (08:14)
[2018-09-13] MEDS ORDERED: Heparin 5000 units/ml inj ONE (08:14)
[2018-09-13] MEDS ORDERED: Clindamycin 600mg 50 ML IV ONE (08:15)
[2018-09-13] MEDS ORDERED: Insulin Human Regular 100units/ml 3ml SUBQ SCH (08:19)
[2018-09-13] MEDS ORDERED: Insulin Human Regular 100units/ml 3ml ONE (08:21)
[2018-09-13] MEDS ORDERED: NS Irrig 1000ml IRRIG ONE ×2 (08:26→09:00)
[2018-09-13] MEDS ORDERED: Heparin 1000 units/ml 1ml Vial INJ ONE ×2 (08:27→09:00)
[2018-09-13] MEDS ORDERED: NS 500ML IVPB ONE ×2 (08:27→09:00)
[2018-09-13] MEDS ORDERED: Propofol 200mg/20ml IV ONE (08:30)
[2018-09-13] MEDS ORDERED: Midazolam 2mg/2ml Inj ONE (08:30)
[2018-09-13] MEDS ORDERED: Sterile Water Irrig 1000ml IRRIG ONE (08:30)
[2018-09-13] MEDS ORDERED: Omnipaque-300 100ml vial INJ ONE ×2 (09:00→09:30)
--- NOTE | 2018-09-13 09:22 | Anethesia Preoperative Eval ---
Anesthesia Pre-op PMH/ROS General Date of Evaluation: Sep 13, 2018 Time of Evaluation: 08:20 Anesthesiologist: Obdulio ASA Score: ASA 3 Mallampati Score Class I : Soft palate, uvula, fauces, pillars visible Class II: Soft palate, uvula, fauces visible Class III: Soft palate, base of uvula visible Class IV: Only hard plate visible Mallampati Classification: Class II Surgeon: Jermaine Diagnosis: L arm A-V shunt malfunction Surgical Procedure: L arm A-V shunt revision Anesthesia History: none Family History: no anesthesia problems Allergies: Coded Allergies: PENICILLINS (Verified Allergy, Unknown, 04/26/18) Medications: see eMAR Patient NPO?: Yes Past Medical History Cardiovascular: Reports: HTN; Denies: CAD, RI, valve dz, arrhythmia, other Pulmonary: Denies: asthma, COPD, ROSIE, other Gastrointestinal/Genitourinary: Reports: GERD, ESRD - on HD Neurologic/Psychiatric: Reports: depression/anxiety, other - Schizophrenia, seizers; Denies: dementia, CVA, TIA Endocrine: Reports: DM - on insulin poorly controled; Denies: hypothyroidism, steroids, other HEENT: Denies: cataract (L), cataract (R), glaucoma, [place] (L), [place] (R), other Hematology/Immune: Reports: anemia - mild; Denies: DVT, bleeding disorder, other Musculoskeletal/Integumentary: Reports: OA, other - gout; Denies: RA, DJD, DDD, edema PMH Narrative: as above PSxH Narrative: see H&P Anesthesia Pre-op Phys. Exam Physician Exam Last Vital Signs Date Time Temp Pulse Resp B/P (MAP) Pulse Ox O2 Delivery O2 Flow Rate FiO2 09/13/18 07:55 Room Air 09/13/18 07:49 97.6 90 20 142/74 97 Constitutional: NAD Neurologic: other - unable to obtaine Cardiovascular: RRR Respiratory: CTA Gastrointestinal: S/NT/ND Airway Exam Mallampati Score: Class II MO: limited Neck: stiff ROM: limited Teeth: missing Dentures: no upper, no lower Anesthesia Pre-op A/P Labs Hematology Test 09/13/18 07:40 White Blood Count 6.9 K/UL (4.8-10.8) Red Blood Count 4.10 M/UL (4.70-6.10) L Hemoglobin 13.5 G/DL (14.2-18.0) L Hematocrit 38.7 % (42.0-52.0) L Mean Corpuscular Volume 94 FL (80-99) Mean Corpuscular Hemoglobin 32.8 PG (27.0-31.0) H Mean Corpuscular Hemoglobin Concent 34.8 G/DL (32.0-36.0) Red Cell Distribution Width 12.9 % (11.6-14.8) Platelet Count 167 K/UL (150-450) Mean Platelet Volume 6.1 FL (6.5-10.1) L Neutrophils (%) (Auto) 54.9 % (45.0-75.0) Lymphocytes (%) (Auto) 26.0 % (20.0-45.0) Monocytes (%) (Auto) 11.7 % (1.0-10.0) H Eosinophils (%) (Auto) 6.4 % (0.0-3.0) H Basophils (%) (Auto) 1.1 % (0.0-2.0) Coagulation Test 09/13/18 07:40 Prothrombin Time 9.8 SEC (9.30-11.50) Prothromb Time International Ratio 0.9 (0.9-1.1) Activated Partial Thromboplast Time 25 SEC (23-33) Chemistry Test 09/13/18 07:40 Sodium Level 137 MMOL/L (136-145) Potassium Level 4.6 MMOL/L (3.5-5.1) Chloride Level 100 MMOL/L (98-107) Carbon Dioxide Level 26 MMOL/L (21-32) Anion Gap 11 mmol/L (5-15) Blood Urea Nitrogen 72 mg/dL (7-18) H Creatinine 6.9 MG/DL (0.55-1.30) H Estimat Glomerular Filtration Rate 8.0 mL/min (>60) Glucose Level 192 MG/DL (74-106) H Calcium Level 10.2 MG/DL (8.5-10.1) H Studies Pre-op Studies: EKG - SR Risk Assessment & Plan Assessment: ASA 3 Plan: GA with LMA Status Change Before Surgery: No Pre-Antibiotics Drug: Clindamycin 600mg. Given Within 1 Hr of Incision: Yes Time Given: 09:22 Cullen Mak MD Sep 13, 2018 09:22
[2018-09-13] MEDS ORDERED: Midazolam 2mg/2ml Inj IVP PRN (10:00)
[2018-09-13] MEDS ORDERED: fentaNYL 100 mcg/2 mL IV PRN (10:00)
--- NOTE | 2018-09-13 10:13 | Immediate Post-Op Evaluation ---
Immediate Post-Op Evalulation Immediate Post-Op Evalulation Procedure: Revision of L arm A-V shunt baloon angioplasty Date of Evaluation: Sep 13, 2018 Time of Evaluation: 10:12 IV Fluids: 500 Blood Products: none Estimated Blood Loss: min Urinary Output: n/a Blood Pressure Systolic: 125 Blood Pressure Diastolic: 56 Pulse Rate: 74 Respiratory Rate: 20 O2 Sat by Pulse Oximetry: 99 Temperature (Fahrenheit): 97.6 Pain Score (1-10): 1 Nausea: No Vomiting: No Complications none Patient Status: reacts, patent, none Hydration Status: adequate Cullen Mak MD Sep 13, 2018 10:13
--- NOTE | 2018-09-13 10:16 | Brief Operative Note ---
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 record Estimated Blood Loss: minimal Drains: none Implant(s) used?: No Malik Dean MD Sep 13, 2018 10:16
--- NOTE | 2018-09-13 11:20 | NUR ---
[facility]. VS AND CONDITION STABLE. PT DENIES POSTOP PAIN. NO BLEEDING NOTED LEFT UPPER ARM. BRUIT PRESENT LEFT UPPER ARM.
--- NOTE | 2018-09-13 11:54 | Diagnostic Imaging Report ---
Indication: Intraoperative imaging; back pain. Findings: Fluoroscopic imaging obtained intraoperatively. Fluoroscopic time: 66 seconds Number fluoroscopic images: 20 Digitally subtracted intraoperative images during a left upper extremity arteriovenous fistulogram demonstrated. IMPRESSION: Intraoperative imaging
[2018-09-13] MEDS ORDERED: fentaNYL 100 mcg/2 mL IV ONE (12:44)
--- NOTE | 2018-09-13 13:53 | 48 Hour Post Anesthesia Eval ---
Post Anesthesia Evaluation Procedure: Revision of L arm A-V shunt baloon angioplasty Date of Evaluation: Sep 13, 2018 Time of Evaluation: 13:51 Blood Pressure Systolic: 128 0: 76 Pulse Rate: 68 Respiratory Rate: 22 Temperature (Fahrenheit): 97.6 O2 Sat by Pulse Oximetry: 98 Airway: patent Nausea: No Vomiting: No Pain Intensity: 2 Hydration Status: adequate Cardiopulmonary Status: stable Mental Status/LOC: patient returned to baseline Follow-up Care/Observations: n/a Post-Anesthesia Complications: none Follow-up care needed: ready to discharge Cullen Mak MD Sep 13, 2018 13:53
--- NOTE | 2018-09-14 12:08 | Cardiology Report ---
APPROVED REPORT EKG Measurement Heart [id number] [place] 182P54 [id number] Normal sinus rhythm Normal ECG
--- NOTE | 2018-09-25 01:00 | Operative Note - Dictated ---
DATE OF OPERATION: 09/13/2018 PREOPERATIVE DIAGNOSES: 1. Nonfunctioning dialysis arteriovenous fistula in the left upper extremity. 2. End-stage renal disease. POSTOPERATIVE DIAGNOSES: 1. Nonfunctioning dialysis arteriovenous fistula in the left upper extremity. 2. End-stage renal disease as well as findings below. PROCEDURES: 1. Left arterialized basilic vein dialysis arteriovenous fistula access sheath placed in the venous outflow direction. 2. Catheterization via AV fistula with the catheter tip in the left subclavian vein. 3. Left arm dialysis fistulogram. 4. Selective superior vena cavogram. 5. Percutaneous transluminal balloon angioplasty (ARMATURE TESTER) of the AV fistula ([place] 8 mm x 4 cm). 6. ARMATURE TESTER of the left axillary vein ([place] 8 mm x 4 cm). 7. Primary surgical repair of the arterialized basilic vein dialysis arteriovenous fistula access site. 8. Intraoperative ultrasound. 9. Digital subtraction angiography. 10. Supervision and interpretation of angiogram and intervention. SURGEON: Malik Dean M.D. ANESTHESIA: General. ANESTHESIOLOGIST: Cullen Mak M.D. INDICATION: The patient has a patent AV fistula in the left arm, but there is some stenosis on a duplex scan and therefore a fistulogram and possible intervention was recommended. INTRAOPERATIVE FINDINGS/INTERPRETATION OF THE RESULTS: The inflow from brachial artery anastomosis is widely patent. The outflow of the transposed basilic vein is patent; however, there is a moderately stenotic segment in the mid portion of the AV fistula and another [id number] stenosis at the junction with the axillary vein beyond which any remainder of the flow through the subclavian vein and innominate vein and superior vena cava is widely patent. Post intervention, the treated segments are now widely patent and there is brisk flow of contrast from the AV fistula into the central veins on the completion angiogram. There was a good thrill present in the AV fistula at the end of the procedure. PROCEDURE IN DETAIL: With the patient in supine position, the left upper extremity was prepped and draped in usual sterile fashion. Skin was infiltrated with local anesthetic and the AV fistula was accessed from the venous site near the arterial anastomosis with a micropuncture needle using a single wall puncture modified Seldinger technique. The wire was advanced in the outflow direction of the vessels without difficulty and the needle removed. Over the wire, a micropuncture introducer sheath and dilator were placed coaxially into the vessel and the wire and dilator removed with good arterial backbleeding noted. The sheath was then flushed with heparinized saline and then serial boluses of contrast were administered for digital subtraction images of the AV fistula with inflow and outflow and the above findings were noted. The sheath was exchanged over a wire for a regular 6-Mong[place]ian sheath in a standard fashion. Once the wire was placed across the stenosis to be treated, it was dilated with the balloon catheter listed above in a standard fashion and then completion angiogram performed, which showed satisfactory results as described above. The sheath was removed and the puncture sites repaired with the primary suture of 5-0 Prolene and good hemostasis obtained. Sterile dressings were placed. The patient was extubated and transferred out of the room in stable condition. ESTIMATED BLOOD LOSS: Minimal. COMPLICATIONS: None. DRAINS: None. TOTAL FLUOROSCOPY TIME: 1 minute 40 minutes. TOTAL CONTRAST: 20 mL. Malik Dean M.D. DR: BISMARK JOB#: [id number] CC: Yanira Thompson M.D. ; FAX#: [phone]
== END 2018-09-13 12:00 | disposition home or self-care (01) ==
LOC: SUR 05:39
DX: T82.590A Other mechanical complication of surgically created arteriovenous fistula, initial encounter (principal); I12.0 Hypertensive chronic kidney disease with stage 5 chronic kidney disease or end stage renal disease; E11.22 Type 2 diabetes mellitus with diabetic chronic kidney disease; N18.6 End stage renal disease; Z99.2 Dependence on renal dialysis; K21.9 Gastro-esophageal reflux disease without esophagitis; F32.9 Major depressive disorder, single episode, unspecified; F41.9 Anxiety disorder, unspecified; F20.9 Schizophrenia, unspecified; G40.909 Epilepsy, unspecified, not intractable, without status epilepticus; M19.90 Unspecified osteoarthritis, unspecified site; Z88.0 Allergy status to penicillin
CPT/HCPCS: 36415; 36902; 76000; 80048; 82962; 85025; 85610; 85730; 93005; J1644; J1815; J2001; J2250; J2704; J3010; J7040; Q9965; Q9967; 94003; 94150; S0077